=== PATIENT | female | born 1970 | race Caucasian/White ===

== ENCOUNTER 2017-04-23 07:11 | Emergency (ER) | payer BC ==
[2017-04-23 07:27] VITALS: BP 109/65
--- NOTE | 2017-04-23 11:12 | UC ---
Hola Che Angela, scribed for Sommer Carrizales DO on 04/23/17 at 0730 . General HPI - HPI Summary HPI Summary: This pt is a 46 y/o female presenting to [facility] c/o sinus congestion, rhinorrhea, sinus pressure, and cough for the last 10 days. Pt reports a productive cough which keeps her up at night. Pt notes her cough wears her out. She states she sleeps on the couch to help her sleep better. Pt additionally notes sinus headache, waking up today with right ear ache, and nausea this morning. She also states mild sore throat, which has alleviated a little since onset. Pt has taken Dayquil and Robitussin with mild relief, not completely alleviating her symptoms. She denies fever. Pt has used a netti pot throughout the day and states it made her ear hurt more. Pt additionally has impetigo on left lower lip for which she is taking mupirocin , and reports it is getting better. She states she has a PMHx of pre-diabetes. Pt denies any antibiotic allergies. Allergic to codeine (reaction is vomiting). - History of Current Complaint Stated Complaint: CONGESTED, EAR PAIN Hx Obtained From: Patient Hx Last Menstrual Period: 04/11/17 Onset/Duration: Lasting Days, Still Present Timing: Constant Current Severity: Moderate Pain Intensity: 6 Pain Location at: sinus pressure Aggravating: nothing Alleviating: Dayquil and Robitussin Associated Signs & Symptoms: Positive: Cough, Nausea, Other - POS: mild sore throat, rhinorrhea, right ear ache, sinus pressure, congestion, sinus headache.. Negative: Fever, Vomiting - Allergy/Home Medications Allergies/Adverse Reactions: Allergies Allergy/AdvReac Type Severity Reaction Status Date / Time codeine Allergy vomit Verified 04/23/17 07:25 Home Medications: Home Medications Folic Acid/Multivit-Min/Lutein [Multi-Vitamin Gummies] 1 mg PO DAILY WITH MEAL 04/23/17 [History Confirmed 04/23/17] PMH/Surg Hx/FS Hx/Imm Hx Other Endocrine History: pre-diabetes Other Cardiovascular History: DENIES: HTN - Surgical History Surgical History: None Surgery Procedure, Year, and Place: denies - Family History Known Family History: Positive: Diabetes - Social History Occupation: Employed Full-time - as a leasing specialist Alcohol Use: None Substance Use Type: None Smoking Status (MU): Never Smoked Tobacco Review of Systems Constitutional: Negative Skin: Other - impetigo on left lower lip. Eyes: Negative ENT: Sore Throat - mild, Ear Ache - right, Nasal Discharge, Sinus Congestion, Other - sinus pressure Respiratory: Cough Cardiovascular: Negative Gastrointestinal: Nausea Genitourinary: Negative Motor: Negative Neurovascular: Negative Musculoskeletal: Negative Neurological: Headache - sinus headache Psychological: Negative Is Patient Immunocompromised?: No All Other Systems Reviewed And Are Negative: Yes Physical Exam Triage Information Reviewed: Yes Appearance: Well-Appearing, No Pain Distress, Well-Nourished Vital Signs: Initial Vital Signs Temp 97.8 F 04/23/17 07:19 Pulse 77 04/23/17 07:19 Resp 16 04/23/17 07:19 BP 109/65 04/23/17 07:19 Pulse Ox 99 04/23/17 07:19 Vital Signs Reviewed: Yes Eyes: Positive: Conjunctiva Clear. Negative: Discharge ENT: Positive: Pharynx normal, Nasal congestion, TMs normal, Sinus tenderness. Negative: Tonsillar swelling, Tonsillar exudate, Trismus Neck exam: Normal Neck: Positive: Supple Respiratory: Positive: Lungs clear, No respiratory distress, No accessory muscle use, Expiration - prolonged expiration at bilateral bases Cardiovascular: Positive: RRR, No Murmur Musculoskeletal Exam: Normal Neurological: Positive: Alert, Muscle Tone Normal Psychological Exam: Normal Psychological: Positive: Age Appropriate Behavior Skin Exam: Other - warm, dry, normal color Skin: Positive: Other - impetigo on left lower lip Course/Dx - Course Course Of Treatment: Patient will be discharged with prescription for albuterol inhaler, Augmentin, Mucinex, and follow up from her PCP. The patient is agreeable with this plan. Medications reviewed. Allergies reviewed. - Differential Dx - Multi-Symptom Provider Diagnoses: sinusitis, bronchospam Discharge - Discharge Plan Condition: Stable Disposition: HOME Prescriptions: Albuterol HFA INHALER* [Ventolin HFA Inhaler*] 2 puff INH Q4H PRN #1 mdi PRN Reason: Sob/Wheezing Amoxicillin/Clavulanate TAB* [Augmentin TAB 875*] 875 mg PO BID #20 tab guaiFENesin ER TAB [Mucinex*] 600 mg PO BID PRN #1 box PRN Reason: Cough Patient Education Materials: Sinusitis (ED), Bronchospasm (ED) Referrals: Sommer Aquino MD [Primary Care Provider] - If Needed Additional Instructions: TRY USING THE NETTI POT IN THE MORNINGS DISCUSSED. YOU MUST ALWAYS USE CLEAN WATER. REMEMBER, POSTURE IS AN IMPORTANT FACTOR IN SINUS DRAINAGE. MOVE YOUR NECK, BREATHE. INHALED BRONCHODILATORS: You have received a prescription for an inhaled bronchodilator -- a medication which stimulates the airways in the lung to dilate. This improves the flow of air in asthma, bronchitis, and emphysema. These medicines have some similarity to adrenaline, and can cause similar side effects: shakiness, racing heart, and a sense of nervousness. These side effects decrease with time. Contact your doctor if these side effects are severe. Do not over-use the medicine. Too-frequent use of the inhaler may make it ineffective. Call your doctor if the inhaler is not controlling your symptoms at the prescribed doses. EXPECTORANT MEDICATION: An expectorant medicine has been prescribed. This type of drug makes mucous thinner, helping the sinuses, nose, and bronchial tubes to remain free of pus and mucous. Expectorants make a cough less severe and more comfortable, and help infected sinuses drain. In general, antihistamines defeat the purpose of the expectorant by making mucous thicker. They should be avoided unless specifically recommended by your physician. AUGMENTIN: Augmentin is a mixture of amoxicillin and clavulanate. Amoxicillin is a member of the penicillin family. It covers the germs likely to cause ear, bronchial, and urinary infections better than plain penicillin. The addition of clavulanate allows it to cover staph infections of the skin, as well as resistant cases of ear and sinus infections. Your physician has chosen Augmentin for you because of the special nature of your situation. Augmentin is best taken with meals. Nausea after taking the medication is rare, but can occur. Diarrhea can occur, particularly in small children. Vaginal yeast infections, and oral thrush in infants are also common. Contact your physician if these problems occur. Allergy to penicillins is common. If you have had an allergic reaction to any drug of the penicillin family, you should never take any other penicillin. Notify your doctor at once if you develop hives, shortness of breath, swelling, or faintness. ANYTIME YOU TAKE AN ANTIBIOTIC, IT IS IMPORTANT TO REPLENISH THE BODY'S SUPPLY OF "GOOD BACTERIA." YOU CAN GET GOOD BACTERIA FROM HIGH QUALITY CULTURED FOODS SUCH LOCAL YOGURT, SOUR KRAUT, CHEPE MIYA, NATURALLY FERMENTED PICKLES AND PROBIOTIC DRINKS. YOU CAN ALSO GET GOOD BACTERIA FROM A PROBIOTIC SUPPLEMENT. The documentation as recorded by the razaibHola gaston Angela accurately reflects the service I personally performed and the decisions made by me, Sommer Carrizales DO.
== END 2017-04-23 08:05 | disposition home or self-care (01) ==
LOC: UCEAST 07:11
DX: J32.9 Chronic sinusitis, unspecified (principal); J21.9 Acute bronchiolitis, unspecified; R73.03 Prediabetes; Z88.5 Allergy status to narcotic agent
CPT/HCPCS: 99212; G0463

== ENCOUNTER 2018-06-19 07:26 | Emergency (ER) | payer BC ==
--- OUTSIDE RECORDS SUMMARY | 2018-06-19 08:07 | XMS REPORT | Continuity of Care Document ---
:1970 External Reference #:[id number] Author Name Sommer Aquino M.D. Address [address] [place] [address] Care Team Providers Name Role Phone Sommer Aquino M.D. Primary Care Physician Unavailable Payers Date Identification Numbers Payment Provider Subscriber Effective: 2014 Policy Number: [id number] [facility] CARMEN Krystian Cox Group Name: BC/BS of [facility] [address] [address] PayID: [id number] BIJAN Gillespie [id number] Advance Directives Description No Information Available Problems Date Description Provider Status Onset: 02/03/2011 Depressive disorder Sommer Aquino M.D. Active Family History Date Family Member(s) Observation Comments Mother Glucose Intolerance METABOLIC SYNDROME Mother Hypercholesterolemia Mother Hypothyroid ÁLVARO'S Paternal Grandfather Cancer, Lung AGE 50 Paternal Grandmother Parkinson's Disease Maternal Grandfather COPD Maternal Grandfather Diabetes Maternal Grandfather Hypertension Maternal Grandfather [place] Maternal Grandmother CVA Maternal Grandmother Hypertension Maternal Grandmother Osteoporosis Maternal Grandmother Cardiomyopathy Maternal Grandmother COPD Social History Type Date Description Comments Sex Unknown Marital Status 2 Times from first Lives With 3 Children 3 boys and 1 stepdaughter Lives With Spouse Tobacco Use Start: Unknown Never Smoked Cigarettes Tobacco Use Start: Unknown Patient has never smoked Allergies, Adverse Reactions, Alerts Date Description Reaction Status Severity Comments 10/01/2002 Bee Stings Active 10/01/2002 Codeine Active Vomiting 12/07/2016 Shellfish-Derived Products Active Severe anaphylaxis Medications Medication Date Status Form Strength Qnty SIG Indications Ordering Provider Black Cohosh 05/17 Active Tablets 540 MG Qday Sommer P. Complex Harvey Aquino Black 05/17 Active Capsules 575mg Sommer Elderberry( P. ry-Flower) Harvey Aquino Dhea 05/17 Active Capsules 25mg PJair Aquino M.D. Vitamin D-400 05/17 Active Tablets 400Unit PJair Aquino M.D. Cetirizine HCL 05/17 Active Tablets 10mg 30tab 1 by mouth s every day PJair Aquino M.D. Iron 27 05/17 Active Tablets 240(27Fe) 1 PO qd mg PJair Aquino M.D. [place] 3 05/17 Active Capsules 1000mg 1 by mouth every day P. Harvey Aquino Magnesium 05/17 Active Tablets 64-112mg 30tab 1 per day Sommer Chloride-Calci s P. um Harvey Aquino Viactiv 05/17 Active Chewtabs 500-500-4 1 by mouth 0mg-Unt-m every day P. cg Harvey Aquino Bupropion 05/17 Active Tablets ER 300mg 90tab 1 PO qam For Sommer Hydrochloride 24HR s Depression P. ER (XL) Harvey Aquino Magnesium 10 Active Tablets 400mg oxide- 1 by mouth every P. day Harvey Aquino Vitamin B-12 12/07 Active Tablets 1000mcg sublingual- 1 by mouth P. every day- Blegen, sublingual Harvey Fish Oil 12/07 Active Capsules 1000mg 1 by mouth every day PJair Aquino M.D. Epinephrine 12/04 Active Solution 0.3mg/0.3 2unit inject at Auto-Inject ML s onset of P. allergic Ble, Harvey gates then go to the er-- Wait To Fill Until PT Calls Bupropion 04/24 Hx Tablets ER 150mg 60tab 1 by mouth Sommer Hydrochloride 12HR s every morning P. ER (SR) - for mood- june Blegen, 05/17 increase M.D. after 3-4 days to 1 po bid as directed Tamiflu 04/05 Hx Capsules 75mg 10cap 1 by mouth Angelo s twice per day Jacinta - for 5 days , 05/17 for flu Bupropion HCL 01/10 Hx Tablets ER 150mg 60tab 1 by mouth Sommer ER (SR) 12HR s every morning P. - for mood- june Blegen, 04/24 increase M.D. after 3-4 days to 1 po bid as directed Doxycycline 01/03 Hx Capsules 100mg 2caps 2 PO X 1 Dose Sommer Hyclate as Directed P. - For Tick Bite Blegen, 01/10 M.D. Vitamin D3 12/07 Hx Capsules 5000Unit 1 by mouth Sommer every day P. - Blegen, 05/[address] [facility] Wort 12/07 Hx Capsules 150mg every other day, P. - occasionally Blegen, 05/16 M.D. Contrave 12/07 Hx Tablets ER 8-90mg 60tab 1 PO Qday X 1 E66.9 12HR s Week, 1 PO P. - bid X 1 Week, Blegen, 01/10 2 PO qam And M.D. 1 PO qpm X 1 Week Then 2 PO bid as Directed Bupropion HCL 01/06 Hx Tablets 100mg 60tab 1 tab by Lenora s mouth twice a Lois, - day COPY COORDINATOR-C 12/05 Celexa 12/04 Hx Tablets 10mg 30tab 1 by mouth F32.9 Lenora s every day Lois, - COPY COORDINATOR-C 01/06 Prednisone 10/09 Hx Tablets 10mg 30tab 4 tabs by Jitendra s mouth x 3 Julia - days then 3 III, 12/04 tabs x 3 COPY COORDINATOR-C days, 2 tabs x 3 days, 1 tab x 3 days Prednisone 09/29 Hx Tablets 20mg 10tab 2 tablets by L23.7 Jitendra s mouth daily Julia - for five days III, 12/04 COPY COORDINATOR-C Bupropion HCL 02/20 Hx Tablets ER 150mg 60tab 1-2 po qday Sommer ER (XL) 24HR s in the P. - morning as Blegen, 12/04 directed M.D. Vitamin D3 04/19 Hx Capsules 5000Unit 1 by mouth Sommer every day for P. - vitamin d Blegen, 12/04 deficiency M.D. Fluconazole 08/21 Hx Tablets 150mg 2tabs 1 tablet by Sommer mouth now for P. - yeast Blegen, 08/21 infection- M.D. may repeat in 1 week if persistent sx Sertraline HCL 08/21 Hx Tablets 50mg 30tab 1/2 po qd x 1 Sommer s week then 1 P. - po qd Blegen, 04/15 M.. Metronidazole 08/21 Hx Gel 0.75% qs apply every night at P. - bedtime for 5 Blegen, 12/04 nights per M.D. vagina as directed Doxycycline 07/10 Hx Capsules 100mg 56cap 1 by mouth Sommer Hyclate s twice a day x P. - 4 weeks for Blegen, 04/15 lyme- take M.D. with full glass of water Fluconazole 11/29 Hx Tablets 150mg 2tabs 1 tablet 1 by Lenora mouth now Lois, - COPY COORDINATOR-C 07/08 Metronidazole 11/27 Hx Tablets 500mg 20tab take 1 tablet V25.42 Lenora s by mouth Lois, - twice a day x COPY COORDINATOR-C 07/08 10 Mirena 10/23 Hx IUD 20mcg/24H inserted Lenora R 09/2013 remove Lois, - 09/2018 COPY COORDINATOR-C 03/25 Metformin HCL 04/02 Hx Tablets ER 500mg 30tab take one 790.21 Sommer CAZARES 24HR s tablet by P. - mouth every Blegen, 08/24 day with M[address]D. dinner [facility] Nar[facility] Wort 04/02 Hx Capsules 1 PO qd Sommer Gamez P. - Blegen, 07/08 M.D. Vitamin B 04/02 Hx Tablets qd- taking Sommer Hein occasionally P. - Blegen, 12/04 M.D. Slow Fe 07/11 Hx Tablets ER 160(50Fe) 1 po qd mg P. - Blegen, 12/04.D. Epipen 2-Cole 04/08 Hx Solution 0.3mg/0.3 1unit one injection Auto-Inject ML s as directed P. - prn severe Blegen, 12/04 allergic M.D. reaction and call 911 Vitamin D3 04/05 Hx Capsules 1000Unit 1 PO bid P. - Blegen, 04/19.D. Azithromycin 01/27 Hx Tablets 250mg 6tabs take 2 461.8 tablets today Vinh Drummond then 1 tablet COPY COORDINATOR-C 04/04 daily for next 4 days Ceftin 04/26 Hx Tablets 500mg 20tab one bid x 10 s days P. - Blegen, 10/05.D. Cetirizine HCL 01/18 Hx Tablets 10mg one po qhs for allergies P. - Blegen, 12/04.D. Nasonex 01/18 Hx Suspension 50mcg/Act 1unit 2 sprays each s nostril qd as P. - directed Blegen, 04/04.D. Asmanex 30 01/18 Hx Aerosol 220mcg/In 1unit 1 puff qd X Sommer Metered Doses /2010 h s 2-4 weeks- P. - rinse mouth Blegen, 04/05 after .D. Albuterol HFA 01/18 Hx 90mcg/Inh 1unit 2 puffs q 4 s hours prn Vinh Drummond wheezing COPY COORDINATOR-C 04/02 Zithromax 01/18 Hx Tablets 250mg 6tabs two po qd Sommer today and P. - then one po Blegen, 10/05 qd for 4 days M.D. /2011 Prednisone 08/20 Hx Tablets 20mg QS 3 po qd for 2 995.3 days, then 1 Vinh Bell po qd for 2 M.D., 01/18 days, then R.D. /03/01 po qd for 2 days Metformin HCL 03/30 Hx Tablets 500mg 30tab 1 PO Qday s With Meal P. - Blegen, 01/18 M.D. Patanol 03/30 Hx Solution 0.1% 5ml one to two gtts ou bid P. - prn allergic Blegen, 01/18 M.D. conjunctiviti s Bleph-10 03/02 Hx Solution 10% 1bott 2 drops to 682.0 le affected eye P. - every 3 hours Blegen, 03/30 initially M.D. then 2 times a day for 7 days Keflex 03/02 Hx Capsules 500mg 14cap one po bid x 682.0 s 7 days Dread, - FIELD GEOLOGIST 03/30 Azithromycin 12/23 Hx Tablets 250mg 6tabs take 2 tabs 466.0 day 1, take 1 Dread - day 2-5 FIELD GEOLOGIST 03/30 Proventil HFA 12/23 Hx Aerosol 108(90Bas 2unit 2 puffs q4-6 466.0 e) mcg/ac s hours prn Dread - cough, FIELD GEOLOGIST 01/18 wheeze, shortness of breath Aerobic 05/20 Hx as directed Sommer [facility] [employer] - hypercholeste Blegen, 09/10 rolemia/ M.D. obesity Zithromax 02/24 Hx Tablets 500mg 3Tabs 1 po daily 461.8 [place] Tri-Cole for three R. Storm, - days, june COPY COORDINATOR-C 09/10 repeat in days if not effective Metrogel-Vagin 10/24 Hx Gel 0.75% 70gm apply qhs pv Sommer x 5days P. - Blegen, 03/30 M.D. Levaquin 05/29 Hx Tablets 500mg 7tabs one qd x 7 Days P. - Blegen, 10/24 M.D. Augmentin 05/27 Hx Tablets 875mg 14tab 1 po bid Connie s Vinh Bell M.D., 05/29 R.D. Keflex 05/11 Hx Capsules 500mg 20cap 1 bid x 10 034.0 Brian s days Yelena - M.DJair 08/09 Penicillin V 04/27 Hx Tablets 500mg 30tab 1 po tid with 034.0 Shawnti Potassium s food for Frank Churchill, - strep throat COPY COORDINATOR-C 10/24 Neurontin 07/19 Hx Capsules 100mg 20cap 1-3 po qhs as s directed P. - Blegen, 10/24 M.D. Valtrex 07/18 Hx Tablets 1gm 21tab 1 PO Q 8 HRS s X 7 Days For P. - Shingles Blegen, 10/24 M.D. Epipen 04/11 Hx Device 1:1000 2unit one injection s as directed P. - prn severe Blegen, 04/08 allergic M.D. reaction and call 911 Zoloft 04/11 Hx Tablets 50mg 45tab 1 And 1/ PO 309.0 s qd P. - Blegen, 04/05 M.D. Zoloft 01/23 Hx Tablets 25mg 30tab 1 PO Daily 309.0 Shawnti /2006 s For Frank Churchill, - adjustment COPY COORDINATOR-C 04/11 reaction /2007 Mupirocin 12/03 Hx Ointment 20mg 15gm Apply qd To Ramesh Skin Sores Aroldo Justice M.D. 10/24 Amoxicillin 12/21 Hx Caps 500mg 21cap 1 tid x 7 Lenora s days Javi - M.DJair 02/06 Anusol HC 10/02 Hx 30uni 1 pr bid For Sommer Suppository /2002 ts 2 Weeks prn P. - Blegen, 10/24 M.D. Mycolog II 06/13 Hx Cream 30gm apply bid until rash Amparo, - gone, up to 3 FIELD GEOLOGIST Denavir 06/13 Hx Cream 1% 2gm apply q2h while awake Amparo, - x4d FIELD GEOLOGIST 02/06 Keflex 12/01 Hx Tablets 500mg 20tab one bid x 10 s days Amparo, - FIELD GEOLOGIST 02/06 Bactroban 12/01 Hx Ointment 15Gra apply to Sommer Ointment ms wound/lesion P. - three times Blegen, 01/29 per day until M.D. healed Amoxicillin 11/23 Hx 500 14uni one po bid ts for 5 -7 days P. - Blegen, 02/06 M.D. Bactroban 11/23 Hx Chewtabs 15Gra apply to Sommer Cream ms wound/lesion P. - three times Blegen, 02/06 perday until M.D. healed Mvi's 09/28 Hx Tablets 90tab one qd Sommer With Iron s P. - Blegen, 03/04 M.D. Amoxicillin 06/29 Hx Chewtabs 250mg 30uni Chew And ts Swallow One P. - Tablet Three Blegen, 06/29 Times Per M.D. Day Until Prescription Is Finished Glucophage XR Hx Tablets ER 500mg 180ta 1 by mouth 24HR bs every day to P. - twice a day Blegen, 05/16 for impaired M.D. fasting glucose Medications Administered in Office Medication Date Status Form Strength Qnty SIG Indications Ordering Provider Medroxyprogesteron 08/22 Administered Injection Sommer e Acetate 1 MG /2013 P. (Depo-Provera) Blegen, Injection M.D. Immunizations CPT Code Status Date Vaccine Lot # [id number] Given 12/15/2016 Influenza Virus Vaccine, Quadrivalent, 3 Yr > Quad, Preserv Free 74726 Given 12/07/2016 Tdap (Adacel) [id number] 71719 Given 12/10/2015 Influenza Virus Vaccine, Quadrivalent, 3 Yr > Quad, Preserv Free 31859 Given 12/12/2014 Influenza Virus Vaccine, Quadrivalent, 3 Yr > Quad, Preserv Free 06088 Given 04/11/2007 Tdap (Adacel) [id number] 47879 Given 07/03/1998 Hep B Vaccine Adult, 3 Dose age >20 yrs 26142 Given 12/06/1996 Hep B Vaccine Adult, 3 Dose age >20 yrs 29344 Given 12/06/1996 DT (Adult) Vital Signs Date Vital Result Comment 05/17/2018 9:27am Weight 184.00 lb Weight 83.462 kg BP Systolic 102 mmHg BP Diastolic 60 mmHg Heart Rate 86 /min Body Temperature 99.0 F Respiratory Rate 16 /min Height 62 inches 5'2" BMI (Body Mass Index) 33.7 kg/m2 Last Menstrual Period 5101677 O2 % BldC Oximetry 96 % 12/07/2016 12:02pm Weight 185.00 lb Weight 83.916 kg BP Systolic 110 mmHg BP Diastolic 74 mmHg Heart Rate 68 /min Body Temperature 98.9 F Respiratory Rate 14 /min Height 62 inches 5'2" BMI (Body Mass Index) 33.8 kg/m2 01/07/2016 4:03pm Weight 187.00 lb Weight 84.823 kg BP Systolic 104 mmHg BP Diastolic 64 mmHg Heart Rate 60 /min Body Temperature 98.7 F Respiratory Rate 14 /min 12/05/2015 3:29pm Weight 181.00 lb Weight 82.102 kg BP Systolic 105 mmHg BP Diastolic 85 mmHg Heart Rate 66 /min O2 % BldC Oximetry 98 % 09/30/2015 9:02am Weight 178.00 lb Weight 80.741 kg BP Systolic 90 mmHg BP Diastolic 60 mmHg Heart Rate 67 /min Body Temperature 97.3 F Respiratory Rate 16 /min 05/27/2015 4:12pm Weight 175.00 lb Weight 79.380 kg BP Systolic 102 mmHg BP Diastolic 64 mmHg Heart Rate 90 /min 04/15/2015 3:31pm Weight 178.00 lb Weight 80.741 kg BP Systolic 104 mmHg BP Diastolic 56 mmHg Heart Rate 100 /min 07/08/2014 11:33am Weight 169.00 lb Weight 76.658 kg BP Systolic 90 mmHg BP Diastolic 60 mmHg Heart Rate 80 /min 03/19/2014 4:31pm Weight 174.00 lb Weight 78.926 kg BP Systolic 106 mmHg BP Diastolic 62 mmHg Heart Rate 66 /min Body Temperature 98.5 F 2013 3:37pm Weight 156.00 lb Weight 70.762 kg BP Systolic 104 mmHg BP Diastolic 68 mmHg Heart Rate 84 /min Body Temperature 98.6 F 10/23/2013 4:09pm Weight 156.00 lb Weight 70.762 kg BP Systolic 100 mmHg BP Diastolic 75 mmHg Heart Rate 75 /min 08/22/2013 3:21pm Weight 150.00 lb Weight 68.040 kg BP Systolic 104 mmHg BP Diastolic 66 mmHg Heart Rate 84 /min Last Menstrual Period [id number] 04/02/2013 10:22am Weight 163.00 lb Weight 73.937 kg BP Systolic 120 mmHg BP Diastolic 78 mmHg Heart Rate 80 /min Height 62 inches 5'2" BMI (Body Mass Index) 29.8 kg/m2 Last Menstrual Period [id number] 07/11/2012 4:02pm Weight 176.00 lb Weight 79.834 kg BP Systolic 100 mmHg BP Diastolic 64 mmHg Heart Rate 74 /min 04/05/2012 9:35am Weight 194.00 lb Weight 87.998 kg BP Systolic 104 mmHg BP Diastolic 64 mmHg Heart Rate 76 /min Height 62.5 inches 5'2.50" BMI (Body Mass Index) 34.9 kg/m2 Last Menstrual Period [id number] 01/28/2012 9:57am Weight 205.00 lb Weight 92.988 kg BP Systolic 108 mmHg BP Diastolic 68 mmHg Heart Rate 84 /min Body Temperature 98.2 F 04/05/2011 12:13pm Weight 191.00 lb Weight 86.638 kg BP Systolic 90 mmHg BP Diastolic 60 mmHg Heart Rate 88 /min Body Temperature 98.9 F 01/18/2011 12:18pm Weight 183.00 lb Weight 83.009 kg BP Systolic 92 mmHg BP Diastolic 56 mmHg Heart Rate 89 /min Body Temperature 99.8 F Last Menstrual Period 0 O2 % BldC Oximetry 98 % 08/20/2010 12:29pm Weight 169.00 lb Weight 76.658 kg BP Systolic 92 mmHg BP Diastolic 60 mmHg Heart Rate 89 /min Body Temperature 98.8 F O2 % BldC Oximetry 98 % 03/30/2010 9:31am Weight 183.00 lb Weight 83.009 kg BP Systolic 110 mmHg BP Diastolic 60 mmHg Heart Rate 84 /min Last Menstrual Period [id number] 03/02/2010 9:25am Weight 187.00 lb Weight 84.823 kg BP Systolic 124 mmHg BP Diastolic 70 mmHg Heart Rate 80 /min Body Temperature 98.7 F Right Visual Acuity Distance 20/20 Left Visual Acuity Distance 20/20 Both Visual Acuity Distance 20/20 12/23/2009 2:27pm Weight 197.00 lb Weight 89.359 kg BP Systolic 110 mmHg BP Diastolic 66 mmHg Heart Rate 100 /min Body Temperature 98.4 F O2 % BldC Oximetry 98 % AT Room Air 10/03/2009 8:48am Weight 198.00 lb Weight 89.813 kg BP Systolic 98 mmHg BP Diastolic 66 mmHg Heart Rate 64 /min Body Temperature 98.8 F 02/24/2009 8:31am Weight 197.00 lb Weight 89.359 kg BP Systolic 106 mmHg BP Diastolic 68 mmHg Heart Rate 76 /min Body Temperature 97.1 F 10/24/2008 9:31am Weight 200.00 lb Weight 90.720 kg BP Systolic 105 mmHg BP Diastolic 60 mmHg Heart Rate 80 /min Height 62.5 inches 5'2.50" BMI (Body Mass Index) 36.0 kg/m2 05/27/2008 10:47am Weight 206.00 lb Weight 93.442 kg BP Systolic 102 mmHg BP Diastolic 64 mmHg Heart Rate 72 /min Body Temperature 98.8 F 05/11/2008 11:10am Weight 203.00 lb Weight 92.081 kg BP Systolic 102 mmHg BP Diastolic 68 mmHg Body Temperature 98.4 F 04/27/2008 10:29am Weight 207.00 lb with shoes Weight 93.895 kg BP Systolic 104 mmHg BP Diastolic 60 mmHg Heart Rate 96 /min Body Temperature 102.6 F 03/04/2008 11:48am Weight 201.00 lb Weight 91.174 kg BP Systolic 112 mmHg BP Diastolic 58 mmHg Heart Rate 72 /min Body Temperature 96.7 F 07/20/2007 12:44pm Weight 190.00 lb Weight 86.184 kg BP Systolic 98 mmHg BP Diastolic 60 mmHg Heart Rate 78 /min Height 62 inches 5'2" BMI (Body Mass Index) 34.7 kg/m2 06/06/2007 4:02pm Weight 200.00 lb Weight 90.720 kg BP Systolic 98 mmHg BP Diastolic 64 mmHg Heart Rate 84 /min Height 62 inches 5'2" BMI (Body Mass Index) 36.6 kg/m2 04/11/2007 2:38pm Weight 199.00 lb Weight 90.266 kg BP Systolic 100 mmHg BP Diastolic 50 mmHg Heart Rate 64 /min Height 62 inches 5'2" BMI (Body Mass Index) 36.4 kg/m2 01/23/2007 3:36pm Weight 196.00 lb Weight 88.906 kg BP Systolic 94 mmHg BP Diastolic 64 mmHg Heart Rate 84 /min Body Temperature 97.2 F 04/10/2003 9:10am Weight 184.00 lb Weight 83.462 kg BP Systolic 110 mmHg BP Diastolic 60 mmHg Body Temperature 97.0 F 12/21/2002 3:47pm Weight 189.00 lb Weight 85.730 kg BP Systolic 96 mmHg BP Diastolic 68 mmHg Body Temperature 98.2 F 10/01/2002 9:02am Weight 181.00 lb Weight 82.102 kg BP Systolic 110 mmHg BP Diastolic 60 mmHg Heart Rate 76 /min Respiratory Rate 18 /min Height 62 inches BMI (Body Mass Index) 33.1 kg/m2 08/28/2002 3:50pm BP Systolic 92 mmHg BP Diastolic 68 mmHg Body Temperature 98.2 F 06/13/2002 9:29am BP Systolic 128 mmHg BP Diastolic 58 mmHg Body Temperature 97.1 F 12/05/2001 11:45am Weight 175.00 lb Weight 79.400 kg BP Systolic 110 mmHg BP Diastolic 70 mmHg Heart Rate 80 /min Body Temperature 98.9 F Respiratory Rate 18 /min 12/01/2001 12:18pm Weight 175.00 lb Weight 79.400 kg BP Systolic 110 mmHg BP Diastolic 60 mmHg Body Temperature 97.6 F 11/23/2001 4:01pm Weight 175.00 lb Weight 79.400 kg BP Systolic 110 mmHg BP Diastolic 64 mmHg 09/19/2001 10:00am BP Systolic 102 mmHg BP Diastolic 56 mmHg Heart Rate 72 /min 06/29/2001 4:58pm Weight 164.00 lb BP Systolic 100 mmHg BP Diastolic 60 mmHg Results Test Date Facility Test Result H/L Range Note Comp Metabolic 05/17/2018 [facility] Sodium 139 mmol/ L N 135-145 Panel [phone] Potassium 4.2 mmol/L N 3.5-5.0 Chloride 104 mmol/L N 101-111 Co2 Carbon Dioxide 29 mmol/L N 22-32 Anion Gap 6 mmol/L N 2-11 Glucose 85 mg/dL N 70-100 Blood Urea Nitrogen 12 mg/dL N 6-24 Creatinine 0.74 mg/dL N 0.51-0.95 BUN/Creatinine Ratio 16.2 N 8-20 Calcium 9.3 mg/dL N 8.6-10.3 Total Protein 6.7 g/dL N 6.4-8.9 Albumin 4.3 g/dL N 3.2-5.2 Globulin 2.4 g/dL N 2-4 Albumin/Globulin Ratio 1.8 N 1-3 Total Bilirubin 0.70 mg/dL N 0.2-1.0 Alkaline Phosphatase 52 U/L N 34-104 Alt 7 U/L N 7-52 Ast 18 U/L N 13-39 Egfr Non- 84.5 >60 Egfr 102.2 >60 1 Laboratory test 05/17/2018 [facility] Hemoglobin A1c 5.0 % N 4.0-5.6 2 finding [phone] (Glyco HGB) Vitamin D Total 25(Oh) 42.5 ng/mL N 20-50 3 CBC Auto Diff 05/17/2018 [facility] White Blood 8.0 10^3/uL N 3.5-10.8 [phone] Count Red Blood Count 4.40 10^6/uL N 3.70-4.87 Hemoglobin 13.7 g/dL N 12.0-16.0 Hematocrit 41 % N 33-41 Mean Corpuscular Volume 93 fL N 80-97 Mean Corpuscular Hemoglobin 31 pg N 27-31 Mean Corpuscular HGB Conc 34 g/dL N 31-36 Red Cell Distribution Width 12 % N 10.5-15 Platelet Count 330 10^3/uL N 150-450 Mean Platelet Volume 8.6 fL N 7.4-10.4 Abs Neutrophils 5.2 10^3/uL N 1.5-7.7 Abs Lymphocytes 2.0 10^3/uL N 1.0-4.8 Abs Monocytes 0.5 10^3/uL N 0-0.8 Abs Eosinophils 0.2 10^3/uL N 0-0.6 Abs Basophils 0.1 10^3/uL N 0-0.2 Abs Nucleated RBC 0 10^3/uL Granulocyte % 64.9 % Lymphocyte % 25.6 % Monocyte % 6.7 % Eosinophil % 2.1 % Basophil % 0.7 % Nucleated Red Blood Cells % 0 Laboratory test 05/17/2018 [facility] TSH (Thyroid 1.26 mcIU/mL N 0.34-5.60 4 finding [phone] Stim Horm) Free T4 (Free Thyroxine) 0.95 ng/dL N 0.61-1.12 5 Iron & Iron Binding 05/17/2018 [facility] Iron 64 g /dL N 50-212 Capacity [phone] Unsaturated Iron Binding < 335 g/dL Total Iron Binding Capacity 350 g/dL N 250-450 Transferrin 250 mg/dL N 203-362 % Iron Saturation 18 % N 15-55 Laboratory test 05/17/2018 [facility] Vitamin B12 > 1450 High 180-914 6 finding [phone] pg/mL Lipid Profile 05/17/2018 [facility] Triglycerides 77 mg/dL 7 (Trig/Chol/HDL) [phone] Cholesterol 169 mg/dL 8 HDL Cholesterol 54.8 mg/dL 9 LDL Cholesterol 99 mg/dL 10 Laboratory test 12/07/2016 [facility] Vitamin D 29.7 ng/mL N 20-50 11 finding [phone] Total 25(Oh) CBC Auto Diff 12/07/2016 [facility] White Blood 6.8 10^3/uL N 3.5-10.8 [phone] Count Red Blood Count 4.16 10^6/uL N 4.0-5.4 Hemoglobin 12.4 g/dL N 12.0-16.0 Hematocrit 38 % N 35-47 Mean Corpuscular Volume 91 fL N 80-97 Mean Corpuscular Hemoglobin 30 pg N 27-31 Mean Corpuscular HGB Conc 33 g/dL N 31-36 Red Cell Distribution Width 13 % N 10.5-15 Platelet Count 284 10^3/uL N 150-450 Mean Platelet Volume 9 um3 N 7.4-10.4 Abs Neutrophils 3.7 10^3/uL N 1.5-7.7 Abs Lymphocytes 2.5 10^3/uL N 1.0-4.8 Abs Monocytes 0.5 10^3/uL N 0-0.8 Abs Eosinophils 0.2 10^3/uL N 0-0.6 Abs Basophils 0 10^3/uL N 0-0.2 Abs Nucleated RBC 0.01 10^3/uL N Granulocyte % 54.5 % N 38-83 Lymphocyte % 35.9 % N 25-47 Monocyte % 6.8 % N 1-9 Eosinophil % 2.2 % N 0-6 Basophil % 0.6 % N 0-2 Nucleated Red Blood Cells % 0.1 N Comp Metabolic Panel 12/07/2016 [facility] Sodium 136 mmol/L N 133-145 [phone] Potassium 4.3 mmol/L N 3.5-5.0 Chloride 103 mmol/L N 101-111 Co2 Carbon Dioxide 29 mmol/L N 22-32 Anion Gap 4 mmol/L N 2-11 Blood Urea Nitrogen 11 mg/dL N 6-24 Creatinine 0.73 mg/dL N 0.51-0.95 BUN/Creatinine Ratio 15.1 N 8-20 Calcium 8.5 mg/dL Low 8.6-10.3 Total Protein 6.5 g/dL N 6.4-8.9 Albumin 4.0 g/dL N 3.2-5.2 Globulin 2.5 g/dL N 2-4 Albumin/Globulin Ratio 1.6 N 1-3 Total Bilirubin 0.60 mg/dL N 0.2-1.0 Alkaline Phosphatase 55 U/L N 34-104 Alt 7 U/L N 7-52 Ast 18 U/L N 13-39 Egfr Non- 86.2 N >60 Egfr 110.9 N >60 12 Laboratory test 12/07/2016 [facility] Glucose 78 mg/ dL N 70-100 finding [phone] Laboratory test 12/07/2016 [facility] Cytology SEE RESULT 13 finding [phone] BELOW HPV Rna Ww/Reflex Genotype Negative N Negative 14 Laboratory 04/16/2015 [facility] TSH (Thyroid 2.07 N 0.34-5.60 15, 16 test finding [phone] Stimulating ?IU/mL Horm) Free T4 0.80 ng/dL N 0.61-1.12 17 Free T3 3.20 pg/mL N 2.5-3.9 18 Thyroperoxidase AB 0.48 IU/mL N <9 19 Comp Metabolic Panel 04/16/2015 [facility] Sodium 136 mmol/L N 133-145 [phone] Potassium 4.2 mmol/L N 3.5-5.0 Chloride 102 mmol/L N 101-111 Co2 Carbon Dioxide 29 mmol/L N 22-32 Anion Gap 5 mmol/L N 2-11 Glucose 83 mg/dL N 70-100 Blood Urea Nitrogen 13 mg/dL N 6-24 Creatinine 0.73 mg/dL N 0.51-0.95 BUN/Creatinine Ratio 17.8 N 8-20 Calcium 8.9 mg/dL N 8.6-10.3 Total Protein 6.2 g/dL Low 6.4-8.9 Albumin 4.0 g/dL N 3.2-5.2 Globulin 2.2 g/dL N 2-4 Albumin/Globulin Ratio 1.8 N 1-3 Total Bilirubin 1.20 mg/dL High 0.2-1.0 Alkaline Phosphatase 46 U/L N 34-104 Alt 7 U/L N 7-52 Ast 18 U/L N 13-39 Egfr Non- 87.0 N >60 Egfr 111.9 N >60 20 Laboratory test 04/16/2015 [facility] Free Cortisol 0.39 N 21 finding [phone] Serum Vitamin D Total 25(Oh) 19.7 ng/mL Low 30-50 22 Hemoglobin A1c 5.3 % N Less than 6.0 23 Lyme Western 07/08/2014 [facility] Lyme Disease Negative N Negative Blot [phone] IgG Ab WB Lyme Disease IgG Bands Present p41, kDa N Lyme Disease IgM Ab WB Negative N Negative Lyme Disease IgM Bands Present No bands detecte <SEE NOTE> kDa N 24 Lyme Disease Interpretation See Comment N 25 Laboratory test 07/08/2014 [facility] Vitamin D 25.2 ng/mL Low 30-50 finding [phone] Total 25(Oh) TSH (Thyroid Stim Horm) 1.35 ?IU/mL N 0.34-5.60 Free T4 (Free Thyroxine) 0.80 ng/mL N 0.61-1.12 T3 Free 3.00 pg/mL N 2.5-3.9 Vitamin B12 610 pg/mL N 180-914 26 CBC Auto Diff 07/08/2014 [facility] White Blood 7.0 10^3/uL N 4.8-10.8 [phone] Count Red Blood Count 4.22 10^6/uL N 4.0-5.4 Hemoglobin 13.7 g/dL N 12.0-16.0 Hematocrit 41 % N 35-47 Mean Corpuscular Volume 96 fL N 80-97 Mean Corpuscular Hemoglobin 32 pg High 27-31 Mean Corpuscular HGB Conc 34 g/dL N 31-36 Red Cell Distribution Width 13 % N 10.5-15 Platelet Count 306 10^3/uL N 150-450 Mean Platelet Volume 9 um3 N 7.4-10.4 Abs Neutrophils 4.4 10^3/uL N 1.5-7.7 Abs Lymphocytes 2.0 10^3/uL N 1.0-4.8 Abs Monocytes 0.4 10^3/uL N 0-0.8 Abs Eosinophils 0.1 10^3/uL N 0-0.6 Abs Basophils 0 10^3/uL N 0-0.2 Abs Nucleated RBC 0 10^3/uL N Granulocyte % 62.8 % N 38-83 Lymphocyte % 29.1 % N 25-47 Monocyte % 5.8 % N 1-9 Eosinophil % 1.9 % N 0-6 Basophil % 0.4 % N 0-2 Nucleated Red Blood Cells % 0.1 N Comp Metabolic Panel 07/08/2014 [facility] Sodium 137 mmol/L N 133-145 [phone] Potassium 3.9 mmol/L N 3.5-5.0 Chloride 103 mmol/L N 101-111 Co2 Carbon Dioxide 30 mmol/L N 22-32 Anion Gap 4 mmol/L N 2-11 Glucose 99 mg/dL N 70-100 Blood Urea Nitrogen 11 mg/dL N 6-24 Creatinine 0.73 mg/dL N 0.51-0.95 BUN/Creatinine Ratio 15.1 N 8-20 Calcium 9.0 mg/dL N 8.6-10.3 Total Protein 6.6 g/dL N 6.4-8.9 Albumin 4.2 g/dL N 3.2-5.2 Globulin 2.4 g/dL N 2-4 Albumin/Globulin Ratio 1.8 N 1-3 Total Bilirubin 1.20 mg/dL High 0.2-1.0 Alkaline Phosphatase 43 U/L N 34-104 Alt 8 U/L N 7-52 Ast 19 U/L N 13-39 Egfr Non- 87.4 N >60 Egfr 112.4 N >60 27 Laboratory test 07/08/2014 [facility] Erythrocyte Sed 13 mm/Hr N 0-14 finding [phone] Rate Hemoglobin A1c (Glyco HGB) 5.2 % N Less than 6.0 28 Laboratory test 2013 [facility] Affirm Vaginal (SEE NOTE) 29 finding [phone] Dna Probe Genital Culture (SEE NOTE) 30 Laboratory test 10/23/2013 [facility] Hemoglobin 12.9 finding (607)- - HCG () 10/23/2013 [facility] NEG Urine Stat (607)- - Test, Urine Laboratory test 08/22/2013 [facility] HCG DIP Test neg Neg finding (607)- - HIV 1/2 AB 04/02/2013 [facility] HIV 1 2 Nonreactive Nonreactive 31 Evaluation [phone] Antibody Syphilis Screen 04/02/2013 [facility] Syphilis IgG Nonreactive Nonreactive 32 [phone] RPR TNP Nonreactive RPR Titer TNP Pediatric/Maternal NO Laboratory test 04/02/2013 [facility] Cytology RUN DATE: 33 finding [phone] SEE NOTE> HPV High Risk 04/02/2013 [facility] Human Papillomavirus ECTO/ENDO [phone] Source HPV High Risk Type 16, PCR Negative Negative HPV High Risk Type 18, PCR Negative Negative HPV Other Risk types Negative Negative 34 GC/Chlamydia 04/02/2013 [facility] GC/Chlamydia Rna ( SEE NOTE) 35 Amplified Rna [phone] Urine DIP 04/02/2013 [facility] Leukocytes NEG Neg (607)- - Urine Nitrites NEG Neg Urine pH 5 5-6 Total Protein, Urine NEG Neg Urine Glucose NORM Norm Urine Ketones NEG Neg Urobilinogen NORM Norm Urine Bilirubin NEG Neg Urine Blood NEG Neg Specific [place] 1.015 1.01-1.02 Laboratory test 03/27/2013 [facility] TSH (Thyroid 1.61 0.34-5.60 finding [phone] Stimulating miu/mL Horm) Free T4 0.97 ng/mL 0.61-1.24 Free T3 3.54 pg/mL 2.39-6.79 Hemoglobin A1c 5.2 % Less than 6.0 36 Vitamin D, 25 03/27/2013 [facility] 25-Hydroxy Vitamin <4.0 ng/mL Hydroxy [phone] D2 25-Hydroxy Vitamin D3 29 ng/mL 25-Hydroxy Vitamin D Total 29 ng/mL 37 Comp Metabolic Panel 03/27/2013 [facility] Sodium 135 mmol/L 133-145 [phone] Potassium 4.1 mmol/L 3.5-5.0 Chloride 100 mmol/L Low 101-111 Co2 Carbon Dioxide 29.0 mmol/L 22-32 Anion Gap 6.0 mmol/L 2-11 Glucose 86 mg/dL 70-100 Blood Urea Nitrogen 10 mg/dL 6-24 Creatinine 0.80 mg/dL 0.50-1.40 BUN/Creatinine Ratio 12.5 8-20 Calcium 9.3 mg/dL 8.1-9.9 Total Protein 6.6 g/dL 6.2-8.1 Albumin 4.0 g/dL 3.6-5.4 Globulin 2.6 g/dL 2-4 Albumin/Globulin Ratio 1.5 1-3 Total Bilirubin 1.8 mg/dL High 0.4-1.5 Alkaline Phosphatase 46 U/L 30-110 Alt 10 U/L Low 14-54 Ast 25 U/L 12-42 Egfr Non- 79.0 >60 Egfr 101.7 >60 38 Laboratory test 04/05/2012 [facility] Cytology RUN DATE: 39 finding [phone] 04/06/ <SEE NOTE> Urine DIP 04/05/2012 [facility] House [facility] Leukocytes NEG Neg (607)- - Urine Nitrites NEG Neg Urine pH 5 5-6 Total Protein, Urine NEG Neg Urine Glucose NORM Norm Urine Ketones NEG Neg Urobilinogen NORM Norm Urine Bilirubin NEG Neg Urine Blood 50 MENSES High Neg Specific [place] NA Low 1.01-1.02 Lipid Profile 03/29/2012 [facility] Triglycerides 95 mg/dL 40-200 (Trig/Chol/HDL) [phone] Cholesterol 166 mg/dL Less than 200 HDL Cholesterol 44 mg/dL 40-60 40 Cholesterol/HDL Ratio 3.8 Average 1-4.44 LDL Cholesterol 103.0 mg/dL High Less Than 100 41 Laboratory test 03/29/2012 [facility] TSH (Thyroid 1.43 0.34-5.60 finding [phone] Stimulating miu/mL Horm) Free T4 0.86 ng/mL 0.61-1.24 Comp Metabolic Panel 03/29/2012 [facility] Sodium 138 mmol/L 133-145 [phone] Potassium 4.3 mmol/L 3.5-5.0 Chloride 105 mmol/L 101-111 Co2 Carbon Dioxide 26.0 mmol/L 22-32 Anion Gap 7.0 mmol/L 2-11 Glucose 101 mg/dL High 70-100 Blood Urea Nitrogen 6 mg/dL 6-24 Creatinine 0.80 mg/dL 0.50-1.40 BUN/Creatinine Ratio 7.5 Low 8-20 Calcium 9.4 mg/dL 8.1-9.9 Total Protein 6.3 g/dL 6.2-8.1 Albumin 3.9 g/dL 3.6-5.4 Globulin 2.4 g/dL 2-4 Albumin/Globulin Ratio 1.6 1-3 Total Bilirubin 1.5 mg/dL 0.4-1.5 Alkaline Phosphatase 54 U/L 30-110 Alt 12 U/L Low 14-54 Ast 21 U/L 12-42 Egfr Non- 79.4 >60 Egfr 102.2 >60 42 Laboratory test 03/29/2012 [facility] Hemoglobin A1c 5.3 % Less than 43 finding [phone] 6.0 CBC Auto Diff 03/29/2012 [facility] White Blood 8.7 4.8-10.8 [phone] Count 10^3/uL Red Blood Count 4.42 10^6/uL 4.0-5.4 Hemoglobin 13.6 g/dL 12.0-16.0 Hematocrit 41 % 35-47 Mean Corpuscular Volume 93 fL 80-97 Mean Corpuscular Hemoglobin 31 pg 27-31 Mean Corpuscular HGB Conc 33 g/dL 31-36 Red Cell Distribution Width 13 % 10.5-15 Platelet Count 259 10^3/uL 150-450 Mean Platelet Volume 9 um3 7.4-10.4 Abs Neutrophils 5.0 10^3/uL 1.5-7.7 Abs Lymphocytes 2.9 10^3/uL 1.0-4.8 Abs Monocytes 0.6 10^3/uL 0-0.8 Abs Eosinophils 0.1 10^3/uL 0-0.6 Abs Basophils 0.1 10^3/uL 0-0.2 Abs Nucleated RBC 0.01 10^3/uL Granulocyte % 57.3 % 38-83 Lymphocyte % 33.5 % 25-47 Monocyte % 7.3 % 1-9 Eosinophil % 1.2 % 0-6 Basophil % 0.7 % 0-2 Nucleated Red Blood Cells % 0.1 Urinalysis 03/30/2010 [facility] Ua Color YELLOW Yellow W/Microscopic [phone] Appearance-Urine CLEAR Clear Specific [place]-Ur 1.020 1.010-1.030 Esterase-Urine TRACE Abnormal Negative Nitrite NEGATIVE Negative [id number] NEGATIVE Negative Protein-Urine NEGATIVE Negative PH-Urine 7.0 5-9 Blood-Urine NEGATIVE Negative Ketones-Urine NEGATIVE Negative Bilirubin-Ur NEGATIVE Negative Glucose-Urine NEGATIVE Negative WBC-Urine 5-10 Abnormal 0-5 RBC-Urine NONE SEEN 0-2 Epith Cells-Ur MODERATE None Bacteria-Urine 1+ None Lipid Profile 03/30/2010 [facility] Triglyceride 76 mg/dL 40-200 (Trig/Chol/HDL) [phone] Cholesterol 204 mg/dL High Less Than 200 44 High Density Lipoprotein 47 mg/dL 40-60 45 Cholesterol/HDL Ratio 4.34 AVERAGE 1-4.44 Low Density Lipoprotein 142 mg/dL High Less Than 100 46 Comp Metabolic Panel 03/30/2010 [facility] Sodium 136 mmol/L 135-145 [phone] Potassium 3.9 mmol/L 3.5-5.0 Chloride 103 mmol/L 101-111 Co2 (Carbon Dioxide) 28.0 mmol/L 22-32 Anion Gap 5.0 mmol/L 2-11 47 Glucose 70 mg/dL 70-100 BUN 8 mg/dL 6-24 Creatinine 0.90 mg/dL 0.50-1.40 One Over Creatinine 1.10 BUN/Creatinine Ratio 8.9 8-20 Calcium 9.3 mg/dL 8.1-9.9 Total Protein 6.6 GM/DL 6.2-8.1 Albumin 4.1 GM/DL 3.6-5.4 Globulin 2.5 GM/DL 2-4 Albumin/Globulin Ratio 1.6 1-3 Bilirubin Total 1.3 mg/dL 0.4-1.5 48 Alkaline Phosphatase 62 U/L 30-110 Alt (SGPT) 11 U/L Low 14-54 Ast (Sgot) 26 U/L 12-42 eGFR Non- 74.5 > 60 eGFR 90.1 > 60 49 Laboratory test 03/30/2010 [facility] Hemoglobin A1c 5.4 % Less Than 50 finding [phone] 6.0 TSH 1.48 MIU/ML 0.34-5.60 Ssa/SSB 03/30/2010 [facility] Ssa NEGATIVE Negative [phone] SSB NEGATIVE Negative CBC With 03/30/2010 [facility] White Blood 9.3 CUMM 4.8-10.8 Electronic Diff [phone] Count Red Cell Count 4.13 CUMM Low 4.2-5.4 Hemoglobin 12.6 g/dL 12.0-16.0 Hematocrit 38 % 35-47 Mean Corpuscular Volume 92 um3 79-97 Mean Corpuscular Hemoglob 31 pg 27-31 Mean Corpuscular HGB Cone 33 g/dL 32-36 Redcell Distribution WDTH 13 % 10.5-15 Platelet Count 312 CUMM 150-450 Mean Platelet Volume 9.0 um3 7.4-10.4 51 Laboratory test 03/30/2010 [facility] Ferritin 15 NG/ ML 11.0-307 finding [phone] Manual 03/30/2010 [facility] Polysegmented 82 % 38 -83 Differential [phone] Neutrophil Lymphocyte 10 % Low 25-47 Monocyte 7 % 0-13 Eosinophil 1 % 0-6 Absolute Neutrophil Count 7.6 RBC Morphology NORMAL Urine DIP 03/30/2010 In House Lab Leukocytes + Neg (607)- - Urine Nitrites NEG Neg Urine pH 5 5-6 Total Protein, Urine NEG Neg Urine Glucose NORM Norm Urine Ketones NEG Neg Urobilinogen NORM Norm Urine Bilirubin NEG Neg Urine Blood ABOUT 50 Neg Specific [place] N/A Low 1.01-1.02 Laboratory 03/30/2010 [facility] Cytology ----- 52 test finding [phone] <SEE NOTE> Laboratory 10/03/2009 [facility] House [facility] Strep NEG Neg test finding (607)- - Screen Laboratory 11/26/2008 [facility] Insulin 44 uU/mL Abnormal 2.6-2 53 test finding [phone] Laboratory 11/26/2008 [facility] Insulin 50 uU/mL Abnormal 2.6-2 54 test finding [phone] 5 Laboratory 11/26/2008 [facility] Insulin 67 uU/mL Abnormal 2.6-2 55 test finding [phone] 5 Comp 11/26/2008 [facility] Sodium 138 mmol/L 135- 1 Metabolic [phone] Panel Potassium 4.6 mmol/L 3.5-5.0 Chloride 103 mmol/L 101-111 Co2 (Carbon Dioxide) 29.0 mmol/L 22-32 Anion Gap 6.0 mmol/L 2-11 56 Glucose 98 mg/dL 70-100 57 BUN 9 mg/dL 6-24 Creatinine 0.70 mg/dL 0.50-1.40 One Over Creatinine 1.40 BUN/Creatinine Ratio 12.9 8-20 Calcium 8.9 mg/dL 8.1-9.9 58 Total Protein 6.9 GM/DL 6.2-8.1 Albumin 3.8 GM/DL 3.6-5.4 Globulin 3.1 GM/DL 2-4 Albumin/Globulin Ratio 1.2 1-3 Bilirubin Total 1.1 mg/dL 0.4-1.5 59 Alkaline Phosphatase 69 U/L 30-110 Alt (SGPT) 10 U/L Low 14-54 Ast (Sgot) 22 U/L 12-42 eGFR Non- 100.1 > 60 eGFR 121.1 > 60 60 Laboratory test 11/26/2008 [facility] Vitamin B12 489 pg/mL 180-914 finding [phone] Insulin 8.7 uU/mL 2.6-25 61 Laboratory test 11/26/2008 [facility] Insulin 52 uU/ mL Abnormal 2.6-25 62 finding [phone] Laboratory test 11/26/2008 [facility] Fasting 92 mg/ dL 70-110 63 finding [phone] Glucose 1HR Glucose 129 mg/dL 64 2HR Glucose 106 mg/dL 65 Laboratory 10/24/2008 [facility] Cytology ----- 66 test finding [phone] <SEE NOTE> Laboratory 10/24/2008 [facility] Urine Culture NF1 67 test finding [phone] Sensitivi Urine DIP 10/24/2008 In House Lab Leukocytes POS ++ Neg (607)- - Urine Nitrites NEG Neg Urine pH 5 5-6 Total Protein, Urine TRACE Neg Urine Glucose NORM Norm Urine Ketones NEG Neg Urobilinogen NORM Norm Urine Bilirubin NEG Neg Urine Blood TRACE Neg Specific [place] N/A Low 1.01-1.02 Lipid Profile 10/10/2008 [facility] Triglyceride 76 mg/dL 40-200 (Trig/Chol/HDL) [phone] Cholesterol 198 mg/dL Less Than 200 68 High Density Lipoprotein 41 mg/dL 40-60 69 Cholesterol/HDL Ratio 4.83 AVERAGE High 1-4.44 Low Density Lipoprotein 142 mg/dL High Less Than 100 70 Laboratory test 10/10/2008 [facility] TSH 1.32 MIU/ ML 0.34-5.60 finding [phone] Thyroxine Free 0.83 NG/ML 0.61-1.24 71 Thyroglobulin AB Screen <1.8 IU/mL <4.0 72 Thyroperoxidase AB 0.3 IU/mL <9.0 73 Comp Metabolic Panel 10/10/2008 [facility] Sodium 138 mmol/L 135-145 [phone] Potassium 4.9 mmol/L 3.5-5.0 Chloride 107 mmol/L 101-111 Co2 (Carbon Dioxide) 28.0 mmol/L 22-32 Anion Gap 3.0 mmol/L 2-11 74 Glucose 87 mg/dL 70-100 75 BUN 8 mg/dL 6-24 Creatinine 0.80 mg/dL 0.50-1.40 One Over Creatinine 1.20 BUN/Creatinine Ratio 10.0 8-20 Calcium 8.9 mg/dL 8.1-9.9 76 Total Protein 6.1 GM/DL Low 6.2-8.1 Albumin 3.6 GM/DL 3.6-5.4 Globulin 2.5 GM/DL 2-4 Albumin/Globulin Ratio 1.4 1-3 Bilirubin Total 1.2 mg/dL 0.4-1.5 77 Alkaline Phosphatase 66 U/L 30-110 Alt (SGPT) 10 U/L Low 14-54 Ast (Sgot) 23 U/L 12-42 eGFR Non- 86.3 > 60 eGFR 104.4 > 60 78 Vitamin D.25 10/10/2008 [facility] 25-Hydroxy Vitamin <4.0 ng/mL () Hydroxy [phone] D2 25-Hydroxy Vitamin D3 27 ng/mL () 25-Hydroxy Vitamin D Total 27 ng/mL () 79 CBC With 10/10/2008 [facility] White Blood 6.2 CUMM 4.8-10.8 Electronic Diff [phone] Count Red Cell Count 4.11 CUMM Low 4.2-5.4 Hemoglobin 12.5 g/dL 12.0-16.0 Hematocrit 37 % 35-47 Mean Corpuscular Volume 91 um3 79-97 Mean Corpuscular Hemoglob 31 pg 27-31 Mean Corpuscular HGB Cone 34 g/dL 32-36 Redcell Distribution WDTH 13 % 10.5-15 Platelet Count 303 CUMM 150-450 Mean Platelet Volume 8.5 um3 7.4-10.4 Gran % 61.1 % 38-83 Lymph % 29.5 % 25-47 Mononuclear % 6.3 % 1-9 Eosinophil % 2.7 % 0-6 Basophil % 0.4 % 0-2 Abs Lymphs 1.8 1.0-4.8 Abs Mononuclear 0.4 0-0.8 Absolute Neutrophil Count 3.8 1.5-7.7 Abs Eosinophils 0.2 0-0.6 Abs Basophils 0 0-0.2 Laboratory test 10/10/2008 [facility] Erythrocyte Sed 20 MM/HR High 0-15 finding [phone] Rate Laboratory test 05/27/2008 [facility] Culture FINAL: NO 80 finding [phone] Sensitivity GROWTH <SEE NOTE> Laboratory test 05/17/2008 [facility] Throat Culture Normal 81 finding [phone] pharyngea <SEE NOTE> Laboratory test 05/11/2008 [facility] House [facility] Strep Screen POS Neg finding (607)- - Laboratory test 04/27/2008 [facility] Strep Screen POS Neg finding (607)- - Surgical 10/27/2007 [facility] Surgical - 82 Pathology [phone] Pathology --- <SEE NOTE> Xray 08/22/2007 [facility] [place] Radiology Sonogram-Thyroi MB CLOSED EXPRESS CHECK-IN# d TRIAGE (607)- - Urine DIP 06/12/2007 [facility] House [facility] Leukocytes NEG Neg (607)- - Urine Nitrites NEG Neg Urine pH 5 5-6 Total Protein, Urine NEG Neg Urine Glucose NORM Norm Urine Ketones NEG Neg Urobilinogen NORM Norm Urine Bilirubin NEG Neg Urine Blood NEG Neg Specific [place] NA Low 1.01-1.02 Lipid Profile 06/12/2007 [facility] Cholesterol/HDL 3.96 1-4.44 83 (Trig/Chol/HDL) [phone] Ratio AVERAGE Cholesterol 190 mg/dL Less Than 200 84 Triglyceride 68 mg/dL 40-200 High Density Lipoprotein 48 mg/dL 40-60 85 Low Density Lipoprotein 128 mg/dL High Less Than 100 86 Laboratory 06/12/2007 [facility] Erythrocyte 29 MM/ HR High 0-15 test finding [phone] Sed Rate Corrina 06/12/2007 [facility] Antinuclear AB NEGATIVE Negative (Antinuclear [phone] Antibodies) Laboratory 06/12/2007 [facility] C Reactive < 0.5 mg/ dL Less Than test finding [phone] Protein 0.5 Urine DIP 06/06/2007 [facility] Leukocytes NEG Neg (607)- - Urine Nitrites NEG Neg Urine pH 7 High 5-6 Total Protein, Urine NEG Neg Urine Glucose NORM Norm Urine Ketones NEG Neg Urobilinogen NORM Norm Urine Bilirubin NEG Neg Urine Blood TRACE Neg Specific [place] N/A Low 1.01-1.02 Laboratory test 04/11/2007 [facility] Thin Prep SEE NOTE 87 finding [phone] W/HPV(Lsil/NAT/Asc) Urine DIP 04/11/2007 [facility] Leukocytes NEG Neg (607)- - Urine Nitrites NEG Neg Urine pH 5 5-6 Total Protein, Urine NEG Neg Urine Glucose NORM Norm Urine Ketones NEG Neg Urobilinogen NORM Norm Urine Bilirubin NEG Neg Urine Blood TRACE Neg Specific [place] N/A Low 1.01-1.02 Laboratory test 01/23/2007 [facility] Throat Normal 88 finding [phone] Culture pharyngea <SEE NOTE> CBC 01/23/2007 [facility] WBC 9.6 x103 4.3-6 [phone] 0.9 RBC 4.34 x106 3.80-5.30 Hemoglobin 12.8 g/dL 11.8-15.8 Hematocrit 39.2 % 35.0-47.0 MCV 90.3 fl 82.0-98.0 MCH 29.5 pg 27.5-33.5 MCHC 32.7 g/dL 32.0-36.0 RDW 12.8 % 11.5-14.5 Platelet Count 351 x103 130-400 MPV 10.8 fl High 6.5-10.5 Segmented Neutrophils 64.9 % 44.0-74.0 Lymphocytes 25.6 % 15.0-45.0 Monocytes 7.7 % 2.0-13.0 Eosinophils 1.4 % 0.0-6.0 Basophils 0.4 % 0.0-2.0 Neutrophil Absolute 6.2 x103 1.4-7.0 Lymphocytes Absolute 2.5 x103 1.0-3.4 Monocyte Absolute 0.7 x103 0.2-1.0 Eosinophil Absolute 0.1 x103 0.0-0.5 Basophil Absolute 0.0 x103 0.0-0.2 Comprehensive 01/23/2007 [facility] Glucose 69 mg/dL Low 70-100 Metabolic [phone] BUN 16 mg/dL 4-18 Creatinine, Serum 0.9 mg/dL 0.5-1.2 Sodium 139 mmol/L 136-146 Potassium 4.5 mmol/L 3.5-5.3 Chloride 103 mmol/L 98-110 Carbon Dioxide 26 mmol/L 20-32 Albumin 4.3 g/dL 3.5-4.7 Protein, Total 7.2 g/dL 6.4-8.2 Calcium 8.9 mg/dL 8.4-10.4 Alkaline Phosphatase 117 U/L 10-118 Sgot (Ast) 25 U/L 3-40 SGPT (Alt) 11 U/L 7-50 Bilirubin, Total 0.70 mg/dL 0.30-1.20 Laboratory 01/23/2007 [facility] TSH (Thyrotropin) 1.240 0.350-5.500 test finding [phone] uIU/ml T-3 Total 138.5 ng/dL 87.0-216.0 T-4 Free 1.0 ng/dL 0.8-1.8 Sedimentation Rate 25 MM/HR High 0-20 GFR (Calculated) >60 89 Laboratory test 01/23/2007 [facility] House [facility] Strep Screen NEG Neg finding (607)- - Surgical 10/21/2006 [facility] Surgical 90 Pathology [phone] Pathology ------ <SEE NOTE> Laboratory test 07/01/2005 [facility] TSH 0.90 0.34-5.60 finding [phone] MIU/ML Vitamin B12 915 pg/mL High 180-914 Corrina (Antinuclear 07/01/2005 [facility] Antinuclear AB 1:80 Abnormal Antibodies) [phone] Antinuclear AB POSITIVE Abnormal Negative Corrina Pattern HOMOGENEOUS Abnormal Basic Metabolic 06/29/2005 [facility] One Over Creatinine 1.25 Panel Stat [phone] Anion Gap 6.0 mmol/L 2-11 91 BUN 16 mg/dL 6-24 Calcium 9.0 mg/dL 8.7-10.2 Chloride 101 mmol/L 101-111 Co2 (Carbon Dioxide) 28.0 mmol/L 22-32 Glucose 91 mg/dL 70-105 Potassium 4.0 mmol/L 3.5-5.0 Sodium 135 mmol/L 135-145 BUN/Creatinine Ratio 20.0 8-20 Creatinine 0.8 mg/dL 0.5-1.4 CBC With 04/10/2003 [facility] Platelet Count 349 CUMM 150-450 Electronic Diff [phone] White Blood Count 6.5 CUMM 4.8-10.8 Hematocrit 41 % 35-47 Hemoglobin 13.6 g/dL 12.0-16.0 Mean Corpuscular HGB Cone 33 g/dL 32-36 Mean Corpuscular Hemoglob 30 pg 27-31 Mean Corpuscular Volume 92 um3 79-97 Mean Platelet Volume 8.2 um3 7.4-10.4 Red Cell Count 4.50 CUMM 4.2-5.4 Redcell Distribution WDTH 12 % 10.5-15 Comp Metabolic 04/10/2003 [facility] Anion Gap 3.0 mmol/L 2-11 92 Panel [phone] Albumin/Globulin Ratio 1.4 1-3 Albumin 3.7 GM/DL 3.6-5.4 BUN 10 mg/dL 6-24 Calcium 9.0 mg/dL 8.7-10.2 Chloride 107 mmol/L 101-111 Co2 (Carbon Dioxide) 30.0 mmol/L 22-32 Creatinine 0.8 mg/dL 0.5-1.4 Globulin 2.7 GM/DL 2-4 Glucose 71 mg/dL 70-105 Potassium 4.2 mmol/L 3.5-5.0 Sodium 140 mmol/L 135-145 Total Protein 6.4 GM/DL 6.2-8.1 BUN/Creatinine Ratio 12.5 8-20 Alkaline Phosphatase 100 U/L 30-110 Alt (SGPT) 9 U/L Low 14-54 Ast (Sgot) 21 U/L 12-42 Bilirubin Total 0.9 mg/dL 0.4-1.5 Laboratory test 04/10/2003 [facility] C Reactive < 0.5 mg/dL Less Than finding [phone] Protein 0.5 CBC With Manual 04/10/2003 [facility] RBC Morphology NORMAL Diff [phone] Atypical Lymph 1 % 0-6 Band Neutrophil 1 % 0-8 Eosenophil 1 % 0-6 Lymphocyte 25 % 5-47 Monocyte 3 % 0-13 Polysegmented Neutrophil 69 % 38-83 Basic Metabolic 10/04/2002 [facility] Anion Gap 8.0 mmol/L 2-11 93 Panel [phone] BUN 12 mg/dL 6-24 Calcium 9.7 mg/dL 8.7-10.2 Chloride 102 mmol/L 101-111 Co2 (Carbon Dioxide) 29.0 mmol/L 22-32 Creatinine 0.8 mg/dL 0.5-1.4 Glucose 83 mg/dL 70-105 Potassium 4.2 mmol/L 3.5-5.0 Sodium 139 mmol/L 135-145 BUN/Creatinine Ratio 15.0 8-20 Laboratory test 10/04/2002 [facility] TSH 1.53 MIU/ ML 0.34-5.60 finding [phone] Lipid Profile 10/04/2002 [facility] Cholesterol 4.40 AVERAGE 1-4.44 (Trig/Chol/HDL) [phone] /HDL Ratio Cholesterol 251 mg/dL High Less Than 200 94 Triglyceride 96 mg/dL 40-200 High Density Lipoprotein 57 mg/dL 40-60 Low Density Lipoprotein 175 mg/dL High Less Than 100 95 Urine DIP 10/01/2002 [facility] House Lab Leukocytes NEG Neg (607)- - Urine Nitrites NEG Neg Urine pH 5 5-6 Total Protein, Urine NEG Neg Urine Glucose NOMR Norm Urine Ketones NEG Neg Urobolinogen NORM Norm Urine Bilirubin NEG Neg Urine Blood NEG Neg Specific [place] NA Low 1.01-1.02 Laboratory test 10/01/2002 [facility] Thin Prep REC'D-SEE finding [phone] Pap Test IMAGE Laboratory test 09/19/2001 [facility] Thin Prep REACT CELL Benign Cell finding [phone] Pap Test [facility] HPVP Panel 07/05/2001 [facility] Low Risk, FINAL 96 [phone] HPV High Risk, HPV FINAL 97 Chlamydia + GC 01/23/2001 [facility] Chlamydia By Dna NEGATIVE Group [phone] Probe GC By Dna Probe NEGATIVE Laboratory test 01/23/2001 [facility] Vaginal Culture FINAL 98 finding [phone] Gram Stain Additional FINAL 99 1 Because ethnic data is not always readily available, this report includes an eGFR for both -Americans and non- Americans. The National Kidney Disease Education Program (NKDEP) does not endorse the use of the MDRD equation for patients that are not between the ages of 18 and 70, are , have extremes of body size, muscle mass, or nutritional status, or are non- or non-. According to the National Kidney Foundation, irrespective of diagnosis, the stage of the disease is based on the level of kidney function: Stage Description GFR(mL/min/1.73 m(2)) 1 Kidney damage with normal or decreased GFR 90 2 Kidney damage with mild decrease in GFR 60-89 3 Moderate decrease in GFR 30-59 4 Severe decrease in GFR 15-29 5 Kidney failure <15 (or dialysis) 2 Therapeutic target for the treatment of diabetes mellitus patients is <7% HBA1C, and in selective patients <6.0%. Please refer to [place] [employer] diabetic care guidelines for further information. 3 [id number] 4 [id number] 5 [id number] 6 Normal Range 180 to 914 Indeterminate Range 145 to 180 Deficient Range <145 7 Desirable: <150 Borderline High: 150-199 High: 200-499 Very High: >500 8 Desirable: <200 Borderline High: 200-239 High: >239 9 Low: <40 Desirable: 40-60 High: >60 10 Desirable: <100 Near Optimal: 100-129 Borderline High: 130-159 High: 160-189 Very High: >189 11 [id number] 12 Because ethnic data is not always readily available, this report includes an eGFR for both -Americans and non- Americans. The National Kidney Disease Education Program (NKDEP) does not endorse the use of the MDRD equation for patients that are not between the ages of 18 and 70, are , have extremes of body size, muscle mass, or nutritional status, or are non- or non-. According to the National Kidney Foundation, irrespective of diagnosis, the stage of the disease is based on the level of kidney function: Stage Description GFR(mL/min/1.73 m(2)) 1 Kidney damage with normal or decreased GFR 90 2 Kidney damage with mild decrease in GFR 60-89 3 Moderate decrease in GFR 30-59 4 Severe decrease in GFR 15-29 5 Kidney failure <15 (or dialysis) 13 SEE RESULT BELOW Name: KRYSTIAN COX : [address]: Sommer Aquino MD Acct: [id number] Unit: [id number] AGE: 46 Location: [facility] Re12/07/16 SEX: F Status: REG REF SPEC: [id number] FELICITA: 12/07/16-1324 [facility] DR: Sommer Aquino MD REQ: [id number] RECD: 12/07/16 STATUS: SOUT _ ORDERED: TP IMAGE ANAL, SHOE DRESSER PHYS INTERP, HPV/Thin Prep, HPV 16/18 GENE COMMENTS: [id number] FINAL DIAGNOSIS Negative for Intraepithelial lesion or Malignancy Reactive cellular changes associated with Inflammation (includes typical repair) A. Ectocervical/Endocervical Specimen Adequacy: Satisfactory of evaluation Transformation zone component identified Patient Information: HPV: High risk HPV RNA testing regardless of pap results. HPV 16/18 Genotype Reflex Actual Specimen Date: 12/07/16 Date of Last Specimen: 04/02/13 Date Time Test Result Flag (u) Normal Range 12/07/16 1324 HPV RNA RFLX GE Negative Negative The high-risk HPV types detected by the assay include: 16, 18, 31, 33, 35, 39, 45, 51, 52, 56, 58, 59, 66, and 68. Signed (signature on file) Kareem Elizalde MD 0939 This Pap test was evaluated with the assistance of the [facility] Test Imaging System. Due to cytologic findings at the locomotive lubricating systems clerk microscope, comprehensive manual rescreening by a Radiological Equipment Specialist may be required. The Pap Smear is a screening test designed to aid in the detection of premalignant and malignant conditions of the uterine cervix. It is not a diagnostic procedure and should not be used as the sole means of detecting cervical cancer. Both false- positive and false- negative reports do occur. Depending on your risk status, a Pap smear should be obtained and evaluated every 1-3 years. END OF REPORT * ML=Testing performed at Main Lab DEPARTMENT OF PATHOLOGY, [address] [place] [address] Kareem Elizalde M.D. Director [facility] # [id number] 14 The high-risk HPV types detected by the assay include: 16, 18, 31, 33, 35, 39, 45, 51, 52, 56, 58, 59, 66, and 68. 15 FASTING 16 FASTING 17 FASTING 18 FASTING 19 FASTING 20 Because ethnic data is not always readily available, this report includes an eGFR for both -Americans and non- Americans. The National Kidney Disease Education Program (NKDEP) does not endorse the use of the MDRD equation for patients that are not between the ages of 18 and 70, are , have extremes of body size, muscle mass, or nutritional status, or are non- or non-. According to the National Kidney Foundation, irrespective of diagnosis, the stage of the disease is based on the level of kidney function: Stage Description GFR(mL/min/1.73 m(2)) 1 Kidney damage with normal or decreased GFR 90 2 Kidney damage with mild decrease in GFR 60-89 3 Moderate decrease in GFR 30-59 4 Severe decrease in GFR 15-29 5 Kidney failure <15 (or dialysis) 21 Test Performed by: [facility] [place] [address] [place] [address] 22 FASTING 23 Therapeutic target for the treatment of diabetes Mellitus patients is <7% HBA1C, and in selective patients <6.0%.Please refer to [place] Diabetes Association Diabetic care guidelines for further information. 24 No bands detected 25 Specific serologic response to B. burgdorferi infection is not detected, but cannot rule out early infection during which low or undetectable antibody levels to B. burgdorferi may be present. If clinically indicated, a new serum specimen should be submitted in 7-14 days. ADDITIONAL INFORMATION CDC criteria require >=5 bands for IgG or >=2 bands for IgM for the Immunoblot to be considered positive. Bands (e.g.,p41) may be detected in patients without Lyme disease, and patterns not meeting the CDC criteria should be interpreted with caution. Immunoblot should be ordered only on specimens that are positive or equivocal by a FDA-licensed Lyme disease antibody screening test (e.g., EIA). Test Performed by: [place] [address] Checker In: Markos Freeman II, M.D., Ph.D. 26 Normal Range 180 to 914 Indeterminate Range 145 to 180 Deficient Range <145 27 Because ethnic data is not always readily available, this report includes an eGFR for both -Americans and non- Americans. The National Kidney Disease Education Program (NKDEP) does not endorse the use of the MDRD equation for patients that are not between the ages of 18 and 70, are , have extremes of body size, muscle mass, or nutritional status, or are non- or non-. According to the National Kidney Foundation, irrespective of diagnosis, the stage of the disease is based on the level of kidney function: Stage Description GFR(mL/min/1.73 m(2)) 1 Kidney damage with normal or decreased GFR 90 2 Kidney damage with mild decrease in GFR 60-89 3 Moderate decrease in GFR 30-59 4 Severe decrease in GFR 15-29 5 Kidney failure <15 (or dialysis) 28 Therapeutic target for the treatment of diabetes Mellitus patients is <7% HBA1C, and in selective patients <6.0%.Please refer to [employer] Diabetes Association Diabetic care guidelines for further information. 29 RUN DATE: 11/28/13 [facility] LAB LIVE PAGE 1 RUN TIME: [address] [place] [address] Specimen Inquiry Name: GILES FULTONE Mai : [address]: Lenora Drummond NP Acct: [id number] Unit: [id number] AGE: 43 Location: [facility] Re11/27/13 SEX: F Status: REG REF SPEC: [id number] FELICITA: 11/27/13-[address]: Lenora Drummond NP REQ: [id number] RECD: 11/27/13 STATUS: COMP _ SOURCE: OFE SPDESC: ORDERED: Affirm QUERIES: Medent Number [id number] Procedure Result Verified Site Affirm Vaginal DNA Probe Final 11/28/13- 1108 ML Organism 1 Negative Trichomonas Organism 2 POSITIVE GARDNERELLA Organism 3 Negative Dixie The presence of G. vaginalis, although suggestive, is not diagnostic for bacterial vaginosis. Results should be interpreted in conjunction with other clinical and laboratory data available. Women with vaginal discharge should be evaluated for risk factors of cervicitis and pelvic inflammatory disease, toxic shock syndrome (S.aureus), and if present, evaluated for organisms not included in this assay such as N. gonorrhoeae, C. trachomatis, Mobiluncus, Mycoplasma and/or Prevotella. Mixed infections may occur. The performance of this test on patient specimens collected during or immediately after antimicrobial therapy is unknown. The presence or absence of Dixie species, G. vaginalis or T. vaginalis cannot be used as a test for therapeutic success or failure. END OF REPORT * ML=Testing performed at Main Lab DEPARTMENT OF PATHOLOGY, [address] [place] [address] Kareem Elizalde M.D. Director [facility] # [id number] 30 RUN DATE: 11/29/13 [facility] LAB LIVE PAGE 1 RUN TIME: [address] [place] [address] Specimen Inquiry Name: KRYSTIAN FULTON : [address]: Lenora Drummond FIELD GEOLOGIST Acct: [id number] Unit: [id number] AGE: 43 Location: [facility] Re11/27/13 SEX: F Status: REG REF SPEC: [id number] FELICITA: 11/27/13-[address]: Lenora Drummond FIELD GEOLOGIST REQ: [id number] RECD: 11/27/13-1826 STATUS: COMP _ SOURCE: CERVIX SPDESC: ORDERED: Genital Culture QUERIES: Medent Number [id number] Procedure Result Verified Site Genital Culture Final 11/29/13- 1000 ML Organism 1 DOV VAGINALIS - PRESUMPTIVE Quantity 2+ Organism 2 YEAST Quantity 1+ Organism 3 NORMAL NICOLAS Quantity 2+ Routine genital cultures do not include selective agar for Neisseria gonorrhoeae. Molecular testing offers better test sensitivity and therefore is the preferred test methodology for identifying this organism. END OF REPORT * ML=Testing performed at Main Lab DEPARTMENT OF PATHOLOGY, [facility] [address] [place], [place] [address] Kareem Elizalde M.D. Director [facility] # [id number] 31 It is recognized that currently available assays for the detection of antibodies to HIV-1 and/or HIV-2 may not detect all infected individuals. HIV antibodies may be undetectable in some stages of the infection and in some clinical conditions. The performance of this assay has not been established for populations of infants or children. Assayed by Chemiluminescence Microparticle Immunoassay on the Siemens Advia Centaur CP. Values obtained with different methods or kits cannot be used interchangeably.The diagnostic specificity of the ADVIA Centaur 1/O/2 Enhanced assay in the low risk population was 99.90% (6052/6058) with a 95% confidence interval of 99.78 to 99.96%. 32 Warning: A positive result is not useful for establishing a diagnosis of syphilis. In most situations, such a result may reflect a prior treated infection; a negative result can exclude a diagnosis of syphilis except for incubating or early primary disease. 33 RUN DATE: 04/03/13 [facility] LAB LIVE PAGE 1 RUN TIME: 1306 [facility] [employer] [place], [place] [address] Specimen Inquiry Name: KRYSTIAN FULTON : [address]: Sommer Aquino MD Acct: [id number] Unit: [id number] AGE: 42 Location: [facility] Re04/02/13 SEX: F Status: REG REF SPEC: [id number] FELICITA: 04/02/13-[address]: Sommer Aquino MD REQ: [id number] RECD: 04/02/13-1226 STATUS: SOUT _ ORDERED: IMAGE ANALYSIS, HPV/Thin Prep FINAL DIAGNOSIS Negative for Intraepithelial lesion or Malignancy COMMENTS: Specimen sent to [facility] in [place], [place] on 04/03/13 by [id number] at 1254. Results will be reported separately. A. Ectocervical/Endocervical Specimen Adequacy: Satisfactory of evaluation Transformation zone component identified Patient Information: HPV: High risk HPV DNA testing regardless of pap results. Actual Specimen Date: 04/02/13 Last Menstrual Date: 03/09/13 Date of Last Specimen: 04/05/12 Signed (signature on file) FELIZ Madden (ASCP) 04/03 1301 This Pap test was evaluated with the assistance of the ThinPrep Test Imaging System. Due to cytologic findings at the locomotive lubricating systems clerk microscope, comprehensive manual rescreening by a Radiological Equipment Specialist may be required. The Pap Smear is a screening test designed to aid in the detection of premalignant and malignant conditions of the uterine cervix. It is not a diagnostic procedure and should not be used as the sole means of detecting cervical cancer. Both false- positive and false- negative reports do occur. Depending on your risk status, a Pap smear shoudl be obtained and evaluated every 1-3 years. END OF REPORT * ML=Testing performed at Main Lab DEPARTMENT OF PATHOLOGY, [facility] [address] [place], [place] [address] Kareem Elizalde M.D. Director [facility] Permit #[id number] 34 The following Other High Risk HPV types were not detected: 31, 33, 35, 39, 45, 51, 52, 56, 58, 59, 66, and 68 Test Performed by: [place] [address] Checker In: Don Can III, M.D. 35 RUN DATE: 04/03/13 [facility] LAB LIVE PAGE 1 RUN TIME: [address] [place] [address] Specimen Inquiry Name: KRYSTIAN FULTON : [address]: Sommer Aquino MD Acct: [id number] Unit: [id number] AGE: 42 Location: [facility] Re04/02/13 SEX: F Status: REG REF SPEC: [id number] FELICITA: 04/02/133 [facility] DR: Sommer Aquino MD REQ: [id number] RECD: 04/02/13 STATUS: COMP _ SOURCE: URINE SPDESC: ORDERED: GC/Chlam RNA QUERIES: Medent Number [id number] Procedure Result Verified Site Chlamydia Trachomatis RNA Final 04/03/13- 1341 ML NEGATIVE for Chlamydia trachomatis rRNA GC (N. gonorrhoeae) RNA Final 04/03/13- 1435 ML NEGATIVE for Neisseria gonorrhoeae rRNA A negative result does not preclude the presence of a C. trachomatis or N. gonorrhoeae infection because results are dependent on adequate specimen collection, absence of inhibitors, and sufficient rRNA to be detected. Test results may be affected by improper specimen collection, improper storage, technical error, or specimen mixup. Limitations of the Procedure: The Aptima Combo 2 Assay is not intended for the evaluation of suspected sexual abuse or for other medico-legal indications. For those patients for whom a false positive result may have adverse psychosocial impact, the [facility] recommends retesting by a method using an alternate technology. Therapeutic failure or success cannot be determined with the Aptima Combo 2 Assay since nucleic acid may persist following appropriate antimicrobial therapy. Results from the Aptima Combo 2 Assay should be interpreted in conjunction with other laboratory and clinical data available to the clinican. CONTINUED ON NEXT PAGE * ML=Testing performed at Main Lab DEPARTMENT OF PATHOLOGY, [facility] [address] [place] [address] Kareem Elizalde M.D. Director [facility] Permit #[id number] RUN DATE: 04/03/13 [facility] LAB LIVE PAGE 2 RUN TIME: 1435 [facility] [employer] [facility] [place], [place] [address] Specimen Inquiry Patient: KRYSTIAN FULTON [id number] (Continued) Specimen: [id number] Collected: 04/02/13 Received: 04/02/13-1251 (Continued) Procedure Result Verified Site GC (N. gonorrhoeae) RNA Final (continued) 04/03/13- 1435 Performance characteristics for detecting C. trachomatis and N. gonorrhoeae are derived from high prevalence populations. Positive results in low prevalence populations should be interpreted carefully with the understanding that the likelihood of a false positive may be higher than a true positive. END OF REPORT * ML=Testing performed at Main Lab DEPARTMENT OF PATHOLOGY, [address] [place] [address] Kareem Elizalde M.D. Director [facility] Permit #[id number] 36 Therapeutic target for the treatment of diabetes Mellitus patients is <7% HBA1C, and in selective patients <6.0%.Please refer to [place] Diabetes Association Diabetic care guidelines for further information. 37 -- REFERENCE VALUE -- 25-HYDROXY D TOTAL (D2+D3) Optimum levels in the healthy population are 20-50, patients with bone disease may benefit from higher levels within this range. Test Performed by: [facility] [address] [address] Checker In: Don Can III, M.D. 38 Because ethnic data is not always readily available, this report includes an eGFR for both -Americans and non- Americans. The National Kidney Disease Education Program (NKDEP) does not endorse the use of the MDRD equation for patients that are not between the ages of 18 and 70, are , have extremes of body size, muscle mass, or nutritional status, or are non- or non-. According to the National Kidney Foundation, irrespective of diagnosis, the stage of the disease is based on the level of kidney function: Stage Description GFR(mL/min/1.73 m(2)) 1 Kidney damage with normal or decreased GFR 90 2 Kidney damage with mild decrease in GFR 60-89 3 Moderate decrease in GFR 30-59 4 Severe decrease in GFR 15-29 5 Kidney failure <15 (or dialysis) 39 RUN DATE: 04/06/12 [facility] LAB LIVE PAGE 1 RUN TIME: [address] [place], [place] [address] Specimen Inquiry Name: KRYSTIAN FULTON : [address]: Sommer Aquino MD Acct: [id number] Unit: [id number] AGE: 41 Location: [facility] Re04/05/12 SEX: F Status: REG REF SPEC: [id number] FELICITA: 04/05/12-[address]: Sommer Aquino MD REQ: [id number] RECD: 02/06/13-1441 STATUS: SOUT _ ORDERED: IMAGE ANALYSIS FINAL DIAGNOSIS Negative for Intraepithelial lesion or Malignancy A. Ectocervical/Endocervical Specimen Adequacy: Satisfactory of evaluation Transformation zone component identified Patient Information: HPV: Thin Layer Pap Test w/reflex to high risk HPV DNA testing when ASCUS Actual Specimen Date: 04/05/12 Last Menstrual Date: 04/04/12 Date of Last Specimen: 03/30/10 Signed (signature on file) Destiny Bonnie AR (ASCP) 04/06/12 1258 This Pap test was evaluated with the assistance of the [employer] Test Imaging System. Due to cytologic findings at the locomotive lubricating systems clerk microscope, comprehensive manual rescreening by a Radiological Equipment Specialist may be required. The Pap Smear is a screening test designed to aid in the detection of premalignant and malignant conditions of the uterine cervix. It is not a diagnostic procedure and should not be used as the sole means of detecting cervical cancer. Both false- positive and false- negative reports do occur. Depending on your risk status, a Pap smear shoudl be obtained and evaluated every 1-3 years. END OF REPORT * ML=Testing performed at Main Lab DEPARTMENT OF PATHOLOGY, [address] [place] [address] Kareem Elizalde M.D. Director [facility] Permit #[id number] 40 HDL Interpretation: Undesirable: High Risk: Less than 40 MG/DL Desirable: Low Risk: Greater than 60 MG/DL 41 LDL Interpretation: Low Risk Optimal Level: LDL Less than 100 MG/DL Near or Above Optimal: LDL 100-129 MG/DL Borderline High Risk: LDL 130-159 MG/DL High Risk: LDL 160-189 MG/DL Very High Risk: LDL Greater than 189 MG/DL 42 Because ethnic data is not always readily available, this report includes an eGFR for both -Americans and non- Americans. The National Kidney Disease Education Program (NKDEP) does not endorse the use of the MDRD equation for patients that are not between the ages of 18 and 70, are , have extremes of body size, muscle mass, or nutritional status, or are non- or non-. According to the National Kidney Foundation, irrespective of diagnosis, the stage of the disease is based on the level of kidney function: Stage Description GFR(mL/min/1.73 m(2)) 1 Kidney damage with normal or decreased GFR 90 2 Kidney damage with mild decrease in GFR 60-89 3 Moderate decrease in GFR 30-59 4 Severe decrease in GFR 15-29 5 Kidney failure <15 (or dialysis) 43 Therapeutic target for the treatment of diabetes Mellitus patients is <7% HBA1C, and in selective patients <6.0%.Please refer to [place] Diabetes Association Diabetic care guidelines for further information. 44 CHOLESTEROL INTERPRETATION: Desirable: Less than 200 MG/DL Borderline-High Risk: 200-239 MG/DL High-Risk: 240 MG/DL and over 45 HDL INTERPRETATION: Undesirable: High Risk: Less than 40 MG/DL Desirable: Low Risk: Greater than 60 MG/DL 46 LDL INTERPRETATION: Low Risk Optimal Level: LDL Less than 100 MG/DL Near or Above Optimal: LDL 100-129 MG/DL Borderline High Risk: LDL 130-159 MG/DL High Risk: LDL 160-189 MG/DL Very High Risk: LDL Greater than 189 MG/DL 47 Anion gap measurement may be of limited value in the presence of any alkalosis, especially in a combined acid base disorder. . 48 A metabolite of Naproxen, O-desmethylnaproxen, has been shown to interfere with the Jendrassik-[place] method for measuring total bilirubin. Samples from patients who have taken Naproxen have shown spurious elevation in total bilirubin levels. 49 Because ethnic data is not always readily available, this report includes an eGFR for both -Americans and non- Americans. The National Kidney Disease Education Program (NKDEP) does not endorse the use of the MDRD equation for patients that are not between the ages of 18 and 70, are , have extremes of body size, muscle mass, or nutritional status, or are non- or non-. According to the National Kidney Foundation, irrespective of diagnosis, the stage of the disease is based on the level of kidney function: Stage Description GFR(mL/min/1.73 m(2)) 1 Kidney damage with normal or decreased GFR 90 2 Kidney damage with mild decrease in GFR 60-89 3 Moderate decrease in GFR 30-59 4 Severe decrease in GFR 15-29 5 Kidney failure <15 (or dialysis) 50 THERAPEUTIC TARGET FOR THE TREATMENT OF DIABETES MELLITUS PATIENTS IS <7% HBA1C, AND IN SELECTIVE PATIENTS <6.0%. PLEASE REFER TO [place]OC[employer]ATION DIABETIC CARE GUIDELINES FOR FURTHER INFORMATION. 51 Lymphopenia % 52 ---- RUN DATE: 03/31/10 [facility] NMI LIVE PAGE 1 RUN TIME: 1147 Specimen Inquiry RUN USER: INTERFACE -- Name: KRYSTIAN FULTON Status: REG REF Re03/30/10 Age/Sex: 39/F Unit#: [id number] Location: [facility] : [birth year] -- Specimen: [id number] SOUT Spec Date: 03/30/[address]: Sommer edmonds MD Spec Type: CYTOLOGY Received: 03/30/10-1455 Copies to: SOURCE ECTOCERVICAL/ENDOCERVICAL Thin Prep with Reflex HPV Test PATIENT INFORMATION ACTUAL COLLECTION DATE: 03/30/10 LAST MENSTRUAL PERIOD: 02/17/10 ADEQUACY OF SPECIMEN Satisfactory for evaluation * Transformation zone component identified * DIAGNOSIS NEGATIVE FOR INTRAEPITHELIAL LESION OR MALIGNANCY * This Pap test was evaluated with the assistance of the [facility] Pap Test Imaging System. The Pap Smear is a screening test designed to aid in the detection of premalign ant and malignant conditions of the uterine cervix. It is not a diagnostic procedure a nd should not be used as the sole means of detecting cervical cancer. Both false- positiv e and false-negative reports do occur. Depending on your risk status, a Pap smear katherine uld be obtained and evaluated every one to three years. Initial evaluation performed by Star ANTONIO([facility]) 03/31/10 Final Interpretation electronically signed by: Star ANTONIO([facility]) 03/31/10 1147 -- -- DEPARTMENT OF PATHOLOGY, [address] [place] [address] [facility] Permit #[id number] Kareem Elizalde M.D. Director Alonso Rodriguez M.D. Acquisitions Analyst Dir guerrero -- 53 Test Performed by: [facility] Dpt of Lab Med and Pathology [address] [place] [address] Checker In: Don Can III, M.D. 54 Test Performed by: [facility] Med [facility] Pathology [address] [place] [address] Checker In: Don Can III, M.D. 55 Test Performed by: [facility] of [facility] Med and Pathology [address] [place] [address] Checker In: Don Can III, M.D. 56 Anion gap measurement may be of limited value in the presence of any alkalosis, especially in a combined acid base disorder. . 57 Note change in reference range as of 10/19/07. The change was based on recommendations from the [place] Diabetes Association. 58 Please note change in reference range effective 07 . 59 A metabolite of Naproxen, O-desmethylnaproxen, has been shown to interfere with the Jendrtayik-Yennifer method for measuring total bilirubin. Samples from patients who have taken Naproxen have shown spurious elevation in total bilirubin levels. 60 Because ethnic data is not always readily available, this report includes an eGFR for both -Americans and non- Americans. The National Kidney Disease Education Program (NKDEP) does not endorse the use of the MDRD equation for patients that are not between the ages of 18 and 70, are , have extremes of body size, muscle mass, or nutritional status, or are non- or non-. According to the National Kidney Foundation, irrespective of diagnosis, the stage of the disease is based on the level of kidney function: Stage Description GFR(mL/min/1.73 m(2)) 1 Kidney damage with normal or decreased GFR 90 2 Kidney damage with mild decrease in GFR 60-89 3 Moderate decrease in GFR 30-59 4 Severe decrease in GFR 15-29 5 Kidney failure <15 (or dialysis) 61 Test Performed by: [facility] of Lab Med and Pathology [address] [place] [address] Checker In: Don Can III, M.D. 62 Test Performed by: [facility] of [facility] Med and Pathology [address] [place] [address] Checker In: Don Can III, M.D. 63 3HR GTT SPECIAL FAST SERUM FASTING GLUCOSE from [id number] 3HR GTT SPECIAL 2.5 HR SER 2 1/2 HR GLUC from 928:[id number]. 3HR GTT SPECIAL 1.5 HR SER 1 1/2HR GLUCOSE from 928:[id number] 3HR GTT SPECIAL 1/2 HR SER 1/2 HR GLUCOSE from 928:[id number] 3HR GTT SPECIAL 2.5 HR SER 2 1/2 HR GLUC from 928:[id number]. 3HR GTT SPECIAL 1.5 HR SER 1 1/2HR GLUCOSE from 29:[id number] 3HR GTT SPECIAL 1/2 HR SER 1/2 HR GLUCOSE from 928:[id number] 3HR GTT SPECIAL 2.5 HR SER 2 1/2 HR GLUC from 928:[id number]. 3HR GTT SPECIAL 1.5 HR SER 1 1/2HR GLUCOSE from 928:[id number] 3HR GTT SPECIAL 1/2 HR SER 1/2 HR GLUCOSE from 928:[id number] 3HR GTT SPECIAL 2.5 HR SER 2 1/2 HR GLUC from 29:[id number]. 3HR GTT SPECIAL 1.5 HR SER 1 1/2HR GLUCOSE from 29:[id number] 3HR GTT SPECIAL 1/2 HR SER 1/2 HR GLUCOSE from 29: [id number] 3HR GTT SPECIAL 2.5 HR SER 2 1/2 HR GLUC from 29:[id number]. 3HR GTT SPECIAL 1.5 HR SER 1 1/2HR GLUCOSE from 29:[id number] 3HR GTT SPECIAL 1/2 HR SER 1/2 HR GLUCOSE from 0929:[id number] 3HR GTT SPECIAL 2.5 HR SER 2 1/2 HR GLUC from 0929: [id number]. 3HR GTT SPECIAL 1.5 HR SER 1 1/2HR GLUCOSE from 29:[id number] 3HR GTT SPECIAL 1/2 HR SER 1/2 HR GLUCOSE from 29:[id number] 3HR GTT SPECIAL 2.5 HR SER 2 1/2 HR GLUC from 29:[id number]. 3HR GTT SPECIAL 1.5 HR SER 1 1/2HR GLUCOSE from 29: [id number] 3HR GTT SPECIAL 1/2 HR SER 1/2 HR GLUCOSE from 29:[id number] 3HR GTT SPECIAL 2.5 HR SER 2 1/2 HR GLUC from 29:[id number]. 3HR GTT SPECIAL 1.5 HR SER 1 1/2HR GLUCOSE from 29:[id number] 3HR GTT SPECIAL 1/2 HR SER 1/2 HR GLUCOSE from 29:[id number] 3HR GTT SPECIAL 2.5 HR SER 2 1/2 HR GLUC from 29:[id number]. 3HR GTT SPECIAL 1.5 HR SER 1 1/2HR GLUCOSE from 29:[id number] 3HR GTT SPECIAL 1/2 HR SER 1/2 HR GLUCOSE from 29:[id number] 3HR GTT SPECIAL 2.5 HR SER 2 1/2 HR GLUC from 29:[id number]. 3HR GTT SPECIAL 1.5 HR SER 1 1/2HR GLUCOSE from 29:[id number] 3HR GTT SPECIAL 1/2 HR SER 1/2 HR GLUCOSE from 29:[id number] 3HR GTT SPECIAL 2.5 HR SER 2 1/2 HR GLUC from 29:[id number]. 3HR GTT SPECIAL 1.5 HR SER 1 1/2HR GLUCOSE from 29:[id number] 3HR GTT SPECIAL 1/2 HR SER 1/2 HR GLUCOSE from 0929: [id number] 3HR GTT SPECIAL 2.5 HR SER 2 1/2 HR GLUC from 29:[id number]. 3HR GTT SPECIAL 1.5 HR SER 1 1/2HR GLUCOSE from 29:[id number] 3HR GTT SPECIAL 1/2 HR SER 1/2 HR GLUCOSE from 29:[id number] 3HR GTT SPECIAL 2.5 HR SER 2 1/2 HR GLUC from 0929: [id number]. 3HR GTT SPECIAL 1.5 HR SER 1 1/2HR GLUCOSE from 0929:[id number] 3HR GTT SPECIAL 1/2 HR SER 1/2 HR GLUCOSE from 29:[id number] 3HR GTT SPECIAL 2.5 HR SER 2 1/2 HR GLUC from 29:[id number]. 3HR GTT SPECIAL 1.5 HR SER 1 1/2HR GLUCOSE from 29: [id number] 3HR GTT SPECIAL 1/2 HR SER 1/2 HR GLUCOSE from 29:[id number] 3HR GTT SPECIAL 2.5 HR SER 2 1/2 HR GLUC from 29:[id number]. 3HR GTT SPECIAL 1.5 HR SER 1 1/2HR GLUCOSE from 29:[id number] 3HR GTT SPECIAL 1/2 HR SER 1/2 HR GLUCOSE from 29:[id number] 3HR GTT SPECIAL 2.5 HR SER 2 1/2 HR GLUC from 29:[id number]. 3HR GTT SPECIAL 1.5 HR SER 1 1/2HR GLUCOSE from 29:[id number] 3HR GTT SPECIAL 1/2 HR SER 1/2 HR GLUCOSE from 29:[id number] 3HR GTT SPECIAL 2.5 HR SER 2 1/2 HR GLUC from 29:[id number]. 3HR GTT SPECIAL 1.5 HR SER 1 1/2HR GLUCOSE from 29:[id number] 3HR GTT SPECIAL 1/2 HR SER 1/2 HR GLUCOSE from 29:[id number] 3HR GTT SPECIAL 2.5 HR SER 2 1/2 HR GLUC from 29:[id number]. 3HR GTT SPECIAL 1.5 HR SER 1 1/2HR GLUCOSE from 29:[id number] 3HR GTT SPECIAL 1/2 HR SER 1/2 HR GLUCOSE from 29: [id number] 3HR GTT SPECIAL 2.5 HR SER 2 1/2 HR GLUC from 29:[id number]. 3HR GTT SPECIAL 1.5 HR SER 1 1/2HR GLUCOSE from 29:[id number] 3HR GTT SPECIAL 1/2 HR SER 1/2 HR GLUCOSE from 29:[id number] 3HR GTT SPECIAL 2.5 HR SER 2 1/2 HR GLUC from 0929: [id number]. 3HR GTT SPECIAL 1.5 HR SER 1 1/2HR GLUCOSE from 0929:[id number] 3HR GTT SPECIAL 1/2 HR SER 1/2 HR GLUCOSE from 0929:[id number] 3HR GTT SPECIAL 2.5 HR SER 2 1/2 HR GLUC from 0929:[id number]. 3HR GTT SPECIAL 1.5 HR SER 1 1/2HR GLUCOSE from 0929: [id number] 3HR GTT SPECIAL 1/2 HR SER 1/2 HR GLUCOSE from 0929:[id number] 3HR GTT SPECIAL 2.5 HR SER 2 1/2 HR GLUC from 29:[id number]. 3HR GTT SPECIAL 1.5 HR SER 1 1/2HR GLUCOSE from 29:[id number] 3HR GTT SPECIAL 1/2 HR SER 1/2 HR GLUCOSE from 29:[id number] 3HR GTT SPECIAL 2.5 HR SER 2 1/2 HR GLUC from 29:[id number]. 3HR GTT SPECIAL 1.5 HR SER 1 1/2HR GLUCOSE from 29:[id number] 3HR GTT SPECIAL 1/2 HR SER 1/2 HR GLUCOSE from 29:[id number] 3HR GTT SPECIAL 2.5 HR SER 2 1/2 HR GLUC from 0929:[id number]. 3HR GTT SPECIAL 1.5 HR SER 1 1/2HR GLUCOSE from 0929:[id number] 3HR GTT SPECIAL 1/2 HR SER 1/2 HR GLUCOSE from 29:[id number] 3HR GTT SPECIAL 2.5 HR SER 2 1/2 HR GLUC from 29:[id number]. 3HR GTT SPECIAL 1.5 HR SER 1 1/2HR GLUCOSE from 0929:[id number] 3HR GTT SPECIAL 1/2 HR SER 1/2 HR GLUCOSE from 0929: [id number] 3HR GTT SPECIAL 2.5 HR SER 2 1/2 HR GLUC from 0929:[id number]. 3HR GTT SPECIAL 1.5 HR SER 1 1/2HR GLUCOSE from 0929:[id number] 3HR GTT SPECIAL 1/2 HR SER 1/2 HR GLUCOSE from 0929:[id number] 3HR GTT SPECIAL 2.5 HR SER 2 1/2 HR GLUC from 0929: [id number]. 3HR GTT SPECIAL 1.5 HR SER 1 1/2HR GLUCOSE from 29:[id number] 3HR GTT SPECIAL 1/2 HR SER 1/2 HR GLUCOSE from 0929:[id number] 3HR GTT SPECIAL 2.5 HR SER 2 1/2 HR GLUC from 0929:[id number]. 3HR GTT SPECIAL 1.5 HR SER 1 1/2HR GLUCOSE from 0929: [id number] 3HR GTT SPECIAL 1/2 HR SER 1/2 HR GLUCOSE from 0929:[id number] 3HR GTT SPECIAL 2.5 HR SER 2 1/2 HR GLUC from 29:[id number]. 3HR GTT SPECIAL 1.5 HR SER 1 1/2HR GLUCOSE from 29:[id number] 3HR GTT SPECIAL 1/2 HR SER 1/2 HR GLUCOSE from 29:[id number] 3HR GTT SPECIAL 2.5 HR SER 2 1/2 HR GLUC from 29:[id number]. 3HR GTT SPECIAL 1.5 HR SER 1 1/2HR GLUCOSE from 29:[id number] 3HR GTT SPECIAL 1/2 HR SER 1/2 HR GLUCOSE from 29:[id number] 3HR GTT SPECIAL 2.5 HR SER 2 1/2 HR GLUC from 29:[id number]. 3HR GTT SPECIAL 1.5 HR SER 1 1/2HR GLUCOSE from 29:[id number] 3HR GTT SPECIAL 1/2 HR SER 1/2 HR GLUCOSE from 0929:[id number] 3HR GTT SPECIAL 2.5 HR SER 2 1/2 HR GLUC from 29:[id number]. 3HR GTT SPECIAL 1.5 HR SER 1 1/2HR GLUCOSE from 29:[id number] 3HR GTT SPECIAL 1/2 HR SER 1/2 HR GLUCOSE from 0929: [id number] 3HR GTT SPECIAL 2.5 HR SER 2 1/2 HR GLUC from 29:[id number]. 3HR GTT SPECIAL 1.5 HR SER 1 1/2HR GLUCOSE from 0929:[id number] 3HR GTT SPECIAL 1/2 HR SER 1/2 HR GLUCOSE from 0929:[id number] 3HR GTT SPECIAL 2.5 HR SER 2 1/2 HR GLUC from 0929: [id number]. 3HR GTT SPECIAL 1.5 HR SER 1 1/2HR GLUCOSE from 0929:[id number] 3HR GTT SPECIAL 1/2 HR SER 1/2 HR GLUCOSE from 0929:[id number] 3HR GTT SPECIAL 2.5 HR SER 2 1/2 HR GLUC from 0929:[id number]. 3HR GTT SPECIAL 1.5 HR SER 1 1/2HR GLUCOSE from 0929: [id number] 3HR GTT SPECIAL 1/2 HR SER 1/2 HR GLUCOSE from 0929:[id number] 3HR GTT SPECIAL 2.5 HR SER 2 1/2 HR GLUC from 0929:[id number]. 3HR GTT SPECIAL 1.5 HR SER 1 1/2HR GLUCOSE from 0929:[id number] 3HR GTT SPECIAL 1/2 HR SER 1/2 HR GLUCOSE from 29:[id number] 3HR GTT SPECIAL 2.5 HR SER 2 1/2 HR GLUC from 29:[id number]. 3HR GTT SPECIAL 1.5 HR SER 1 1/2HR GLUCOSE from 29:[id number] 3HR GTT SPECIAL 1/2 HR SER 1/2 HR GLUCOSE from 29:[id number] 3HR GTT SPECIAL 2.5 HR SER 2 1/2 HR GLUC from 29:[id number]. 3HR GTT SPECIAL 1.5 HR SER 1 1/2HR GLUCOSE from 29:[id number] 3HR GTT SPECIAL 1/2 HR SER 1/2 HR GLUCOSE from 0929:[id number] 3HR GTT SPECIAL 2.5 HR SER 2 1/2 HR GLUC from 0929:[id number]. 3HR GTT SPECIAL 1.5 HR SER 1 1/2HR GLUCOSE from 0929:[id number] 3HR GTT SPECIAL 1/2 HR SER 1/2 HR GLUCOSE from 0929: [id number] 3HR GTT SPECIAL 2.5 HR SER 2 1/2 HR GLUC from 0929:[id number]. 3HR GTT SPECIAL 1.5 HR SER 1 1/2HR GLUCOSE from 0929:[id number] 3HR GTT SPECIAL 1/2 HR SER 1/2 HR GLUCOSE from 0929:[id number] 3HR GTT SPECIAL 2.5 HR SER 2 1/2 HR GLUC from 0929: [id number]. 3HR GTT SPECIAL 1.5 HR SER 1 1/2HR GLUCOSE from 0929:[id number] 3HR GTT SPECIAL 1/2 HR SER 1/2 HR GLUCOSE from 0929:[id number] 3HR GTT SPECIAL 2.5 HR SER 2 1/2 HR GLUC from 0929:[id number]. 3HR GTT SPECIAL 1.5 HR SER 1 1/2HR GLUCOSE from 0929: [id number] 3HR GTT SPECIAL 1/2 HR SER 1/2 HR GLUCOSE from 0929:[id number] 3HR GTT SPECIAL 2.5 HR SER 2 1/2 HR GLUC from 0929:[id number]. 3HR GTT SPECIAL 1.5 HR SER 1 1/2HR GLUCOSE from 0929:[id number] 3HR GTT SPECIAL 1/2 HR SER 1/2 HR GLUCOSE from 0929:[id number] 3HR GTT SPECIAL 2.5 HR SER 2 1/2 HR GLUC from 0929:[id number]. 3HR GTT SPECIAL 1.5 HR SER 1 1/2HR GLUCOSE from 0929:[id number] 3HR GTT SPECIAL 1/2 HR SER 1/2 HR GLUCOSE from 29:[id number] 3HR GTT SPECIAL 2.5 HR SER 2 1/2 HR GLUC from 29:[id number]. 3HR GTT SPECIAL 1.5 HR SER 1 1/2HR GLUCOSE from 0929:[id number] 3HR GTT SPECIAL 1/2 HR SER 1/2 HR GLUCOSE from 0929:[id number] 3HR GTT SPECIAL 2.5 HR SER 2 1/2 HR GLUC from 0929:[id number]. 3HR GTT SPECIAL 1.5 HR SER 1 1/2HR GLUCOSE from 0929:[id number] 3HR GTT SPECIAL 1/2 HR SER 1/2 HR GLUCOSE from 0929: [id number] 3HR GTT SPECIAL 2.5 HR SER 2 1/2 HR GLUC from 0929:[id number]. 3HR GTT SPECIAL 1.5 HR SER 1 1/2HR GLUCOSE from 0929:[id number] 3HR GTT SPECIAL 1/2 HR SER 1/2 HR GLUCOSE from 0929:[id number] 3HR GTT SPECIAL 2.5 HR SER 2 1/2 HR GLUC from 0929: [id number]. 3HR GTT SPECIAL 1.5 HR SER 1 1/2HR GLUCOSE from 0929:[id number] 3HR GTT SPECIAL 1/2 HR SER 1/2 HR GLUCOSE from 0929:[id number] 3HR GTT SPECIAL 2.5 HR SER 2 1/2 HR GLUC from 0929:[id number]. 3HR GTT SPECIAL 1.5 HR SER 1 1/2HR GLUCOSE from 29: [id number] 3HR GTT SPECIAL 1/2 HR SER 1/2 HR GLUCOSE from 29:[id number] 3HR GTT SPECIAL 2.5 HR SER 2 1/2 HR GLUC from 0929:[id number]. 3HR GTT SPECIAL 1.5 HR SER 1 1/2HR GLUCOSE from 0929:[id number] 3HR GTT SPECIAL 1/2 HR SER 1/2 HR GLUCOSE from 29:[id number] 3HR GTT SPECIAL 2.5 HR SER 2 1/2 HR GLUC from 0929:[id number]. 3HR GTT SPECIAL 1.5 HR SER 1 1/2HR GLUCOSE from 29:[id number] 3HR GTT SPECIAL 1/2 HR SER 1/2 HR GLUCOSE from 0929:[id number] 3HR GTT SPECIAL 2.5 HR SER 2 1/2 HR GLUC from 29:[id number]. 3HR GTT SPECIAL 1.5 HR SER 1 1/2HR GLUCOSE from 29:[id number] 3HR GTT SPECIAL 1/2 HR SER 1/2 HR GLUCOSE from 29:[id number] 3HR GTT SPECIAL 2.5 HR SER 2 1/2 HR GLUC from 29:[id number]. 3HR GTT SPECIAL 1.5 HR SER 1 1/2HR GLUCOSE from 0929:[id number] 3HR GTT SPECIAL 1/2 HR SER 1/2 HR GLUCOSE from 0929: [id number] 3HR GTT SPECIAL 2.5 HR SER 2 1/2 HR GLUC from 0929:[id number]. 3HR GTT SPECIAL 1.5 HR SER 1 1/2HR GLUCOSE from 29:[id number] 3HR GTT SPECIAL 1/2 HR SER 1/2 HR GLUCOSE from 0929:[id number] 3HR GTT SPECIAL 2.5 HR SER 2 1/2 HR GLUC from 29:[id number] 64 REFERENCE RANGE: 20-50 MG/DL ABOVE FASTING 65 REFERENCE RANGE: 5-15 MG/DL ABOVE FASTING 66 ---- RUN DATE: 10/25/08 [facility] NMI LIVE PAGE 1 RUN TIME: 1312 Specimen Inquiry RUN USER: INTERFACE -- Name: KRYSTIAN FULTON Status: REG REF Re10/24/08 Age/Sex: 37/F Unit#: [id number] Location: [facility]. : 71 -- Specimen: [id number] SOUT Spec Date: 10/24/[address]: Sommer edmonds MD Spec Type: CYTOLOGY Received: 10/25/08-1002 Copies to: SOURCE ECTOCERVICAL/ENDOCERVICAL Thin Prep with Reflex HPV Test PATIENT INFORMATION ACTUAL COLLECTION DATE: 10/24/08 PATIENT HISTORY: No history given. ADEQUACY OF SPECIMEN Satisfactory for evaluation * Transformation zone component identified * DIAGNOSIS NEGATIVE FOR INTRAEPITHELIAL LESION OR MALIGNANCY * This Pap test was evaluated with the assistance of the ThinPrep Pap Test Imaging System. The Pap Smear is a screening test designed to aid in the detection of premalign ant and malignant conditions of the uterine cervix. It is not a diagnostic procedure a nd should not be used as the sole means of detecting cervical cancer. Both false- positiv e and false-negative reports do occur. Depending on your risk status, a Pap smear katherine uld be obtained and evaluated every one to three years. Initial evaluation performed by Star ANTONIO([facility]) 10/25/08 Final Interpretation electronically signed by: Star ANTONIO([facility]) 10/25/08 1311 -- -- DEPARTMENT OF PATHOLOGY, [address] [place] [address] [facility] Permit #[id number] Harvey Kelly M.D. Acquisitions Analyst Dir masters -- 67 SPECIMEN CONTAINS NORMAL URETHRAL OR PERINEAL NICOLAS AND DOES NOT SUGGEST URINARY TRACT INFECTION 68 CHOLESTEROL INTERPRETATION: Desirable: Less than 200 MG/DL Borderline-High Risk: 200-239 MG/DL High-Risk: 240 MG/DL and over 69 HDL INTERPRETATION: Undesirable: High Risk: Less than 40 MG/DL Desirable: Low Risk: Greater than 60 MG/DL 70 LDL INTERPRETATION: Low Risk Optimal Level: LDL Less than 100 MG/DL Near or Above Optimal: LDL 100-129 MG/DL Borderline High Risk: LDL 130-159 MG/DL High Risk: LDL 160-189 MG/DL Very High Risk: LDL Greater than 189 MG/DL 71 PLEASE NOTE NEW REFERENCE RANGES. 72 Test Performed by: [facility] Dpt of Lab Med and Pathology [address] [place] [address] Checker In: Don Can III, M.D. 73 Test Performed by: [facility] Med and Pathology [address] [place] [address] Checker In: Don Can III, M.D. 74 Anion gap measurement may be of limited value in the presence of any alkalosis, especially in a combined acid base disorder. . 75 Note change in reference range as of 10/19/07. The change was based on recommendations from the [place] [employer]. 76 Please note change in reference range effective 07 . 77 A metabolite of Naproxen, O-desmethylnaproxen, has been shown to interfere with the [place] method for measuring total bilirubin. Samples from patients who have taken Naproxen have shown spurious elevation in total bilirubin levels. 78 Because ethnic data is not always readily available, this report includes an eGFR for both -Americans and non- Americans. The National Kidney Disease Education Program (NKDEP) does not endorse the use of the MDRD equation for patients that are not between the ages of 18 and 70, are , have extremes of body size, muscle mass, or nutritional status, or are non- or non-. According to the National Kidney Foundation, irrespective of diagnosis, the stage of the disease is based on the level of kidney function: Stage Description GFR(mL/min/1.73 m(2)) 1 Kidney damage with normal or decreased GFR 90 2 Kidney damage with mild decrease in GFR 60-89 3 Moderate decrease in GFR 30-59 4 Severe decrease in GFR 15-29 5 Kidney failure <15 (or dialysis) 79 -- REFERENCE VALUE -- 25-HYDROXY D TOTAL (D2+D3) Optimum levels in the normal population are 25-80 Test Performed by: [facility] D[facility] of Lab Med and Pathology [address] [place] [address] Checker In: Don Can III, M.D. 80 FINAL: NO GROWTH DAY 2 81 Normal pharyngeal nicolas 82 ---- RUN DATE: 11/03/07 [facility] NMI LIVE PAGE 1 RUN TIME: 916 Specimen Inquiry RUN USER: INTERFACE -- Name: KRYSTIAN FULTON Status: REG REF Re10/27/07 Age/Sex: 36/F Unit#: [id number] Location: [facility] : 71 -- Specimen: [id number] SOUT Spec Date: 10/27/[address]: Charlie gutiérrez MD Spec Type: SURGICAL P Received: 10/31/07-5611 Copies to: Sommer dailey MD SPECIMEN EXCISION SKIN LESION LEFT UPPER BACK HISTORY CLINICAL INFORMATION: Irritating papule. GROSS DESCRIPTION . DIAGNOSIS Skin, left upper back, excision: Dermatofibroma (see comment). COMMENT The following immunohistochemical stains were performed by [facility] with the appropriate controls: Factor 13A: Positive in spindle cell proliferation. CD34: Positive in traversing small vessels only. The morphologic features and immunohistochemical staining pattern support the above rendered diagnosis. ADDENDUM Addendum #1 Entered: 11/03/07 The gross description was omitted in the original surgical pathology report as a clerical error. The gross description is as follows: Received in formalin labelled Krystianalek Fulton Skin Left Upper Back consists of an unoriented skin ellipse measuring 1.2 x 1.0 x 0.8 cm. Specimen is inked, serially sectioned and submitted entirely one cassette. -- DEPARTMENT OF PATHOLOGY, [address] [place] [address] [facility] Permit #[id number] Kareem Elizalde M.D. Director of Laboratories -- -- RUN DATE: 11/03/07 [facility] NMI LIVE PAGE 2 RUN TIME: 916 Specimen Inquiry RUN USER: INTERFACE -- Name: KRYSTIAN FULTON Status: REG REF Re10/27/07 Age/Sex: 36/F Unit#: [id number] Location: [facility] : 71 -- -- CONTINUED -- ADDENDUM (Continued) Addendum Review (signature on file) KAREEM ELIZALDE MD 11/03/07 -- Signed Electronically by: KAREEM ELIZALDE MD 11/02/07 1701 -- -- DEPARTMENT OF PATHOLOGY, [address] [place] [address] [facility] Permit #[id number] Kareem Elizalde M.D. Director of [employer] -- 83 FASTING 84 CHOLESTEROL INTERPRETATION: Desirable: Less than 200 MG/DL Borderline-High Risk: 200-239 MG/DL High-Risk: 240 MG/DL and over 85 HDL INTERPRETATION: Undesirable: High Risk: Less than 40 MG/DL Desirable: Low Risk: Greater than 60 MG/DL 86 LDL INTERPRETATION: Low Risk Optimal Level: LDL Less than 100 MG/DL Near or Above Optimal: LDL 100-129 MG/DL Borderline High Risk: LDL 130-159 MG/DL High Risk: LDL 160-189 MG/DL Very High Risk: LDL Greater than 189 MG/DL 87 [employer] DEPARTMENT OF PATHOLOGY or Extension 8212 SHOE DRESSER CYTOLOGY REPORT PATIENT: KRYSTIAN FULTON : 1970 AGE: 36 Y SEX: F ACCT: [id number] PROCEDURE DATE: 04/11/2007 DATE RECEIVED: 04/12/2007 REQUESTING PHYSICIAN: SOMMER AQUINO MD LOCATION: [facility] Case No. [id number] PATIENT DATA: [id number] SPECIMEN SUBMITTED: * * (HPVII) THIN PREP W/HPV (LSIL/ASC/NAT) * * ENDOCERVICAL RELEVANT HISTORY: Post - : Y Weeks after delivery: 9 SPECIMEN ADEQUACY SATISFACTORY FOR EVALUATION, ENDOCERVICAL TRANSFORMATION ZONE COMPONENT PRESENT GENERAL CATEGORIZATION NEGATIVE FOR INTRAEPITHELIAL LESIONS OR MALIGNANCY ADDITIONAL COPIES SENT TO: Screened/Rescreened by: Electronically Signed by: FELIZ CURRIE(ASCP) Signed Date 04/13/2007 14:21 Thin Prep Pap tests are examined with an FDA-approved location-guidance system (18011). Performed @ [facility] [address] [place] [id number] 38 Normal pharyngeal nicolas 89 mL/min/1.73m2 . Normal Function or Mild Renal Disease, if clinically at risk: >or=60 Moderately decreased: 30 - 59 Severely decreased: 15 - 29 Renal Failure: <15 . Please note that the MDRD equation requires an additional adjustment for -Americans (multiply the GFR result by 1.210). . Glomerular Filtration Rate (GFR) is estimated based on the MDRD equation, which assumes a steady state for creatinine (Leilani Int Med 139/2 137-149, 2003), as recommended by the National Kidney Disease Education Program in conjunction with the National Institutes of Health and the National Kidney Foundation. . Clinical conditions in which it may be necessary to measure GFR by using clearance methods include extremes of age and body size, severe malnutrition or obesity, diseases of skeletal muscle, paraplegia or quadriplegia, vegetarian diet, rapidly changing kidney function, and calculation of the dose of potentially toxic drugs that are excreted by the kidneys. 90 ---- RUN DATE: 10/25/06 [facility] NMI LIVE PAGE 1 RUN TIME: 1457 Specimen Inquiry RUN USER: INTERFACE [id number] KRYSTIAN FULTON 35/F <REG REF 10/21> ([id number]) [facility] Kevyn d -- Specimen: [id number] SOUT Spec Date: 10/21/[address] [facility] [address]: Charlie gutiérrez MD Spec Type: SURGICAL P Received: 10/24/06 Copies to: Sommer dailey MD SPECIMEN 1) EXCISION SKIN LESION LEFT ALAR CREASE 2) EXCISION SKIN LESION LEFT CHEEK 3) EXCISION SKIN LESION LEFT NECK HISTORY CLINICAL INFORMATION: Irritating papules GROSS DESCRIPTION 1) The specimen is received in formalin labelled Krystian Fulton, Excision Skin Lesion Left Alar Crease, and consists of an unoriented skin ellipse measuring 0.7 x 0.5 x 0.3 cm. Submitted entirely, one cassette. 2) The specimen is received in formalin labelled Krystianalek Nixong, Excision Skin Lesion Left Cheek, and consists of an unoriented skin ellipse measuring 0.6 x 0.3 x 0.3 cm. with a central raised, pigmented nodule up to 0.3 cm. The specimen is inked, bisected, and submitted entirely in one cassette. 3) The specimen is received in formalin labelled Krystian Nixong, Excision Skin Lesion Left Neck, and consists of an unoriented, irregular skin ellipse measuring 0.6 x 0.7 x 0.3 cm. The specimen is inked, serially sectioned, and submitted entirely in one cassette. DIAGNOSIS 1) Skin, left alar crease, excision - Benign, predominantly intradermal melanocytic nevus. 2) Skin, left cheek, excision - Benign, predominantly intradermal melanocytic nevus. 3) Skin, left neck, excision - Benign, predominantly intradermal melanocytic nevus. Signed Electronically by: KAREEM ELIZALDE MD 10/25/06 0476 -- -- DEPARTMENT OF PATHOLOGY, [address] [place] [address] [facility] Permit #[id number] Kareem Elizalde M.D. Director of Laboratories Markos Thompson II, M.D . Pathologist -- 91 Anion gap measurement may be of limited value in the presence of any alkalosis, especially in a combined acid base disorder. . 92 Anion gap measurement may be of limited value in the presence of any alkalosis, especially in a combined acid base disorder. . 93 Anion gap measurement may be of limited value in the presence of any alkalosis, especially in a combined acid base disorder. . 94 Classification: High . 95 CALCULATED LDL APPROXIMATES THE VALUE OF A DIRECT LDL MEASUREMENT. Classification: High . 96 Source: CERVICAL POSITIVE for low risk HPV types 6/11/42/43/44 97 Source: CERVICAL Negative for high/intermediate risk HPV types 16/18/31/33/35/39/45/51/52/56/58/59/68 98 Source: VAGINAL Normal vaginal nicolas. 99 Source: VAGINAL RARE EPI, RARE WBC, FEW GRAM NEG RODS Procedures Date Code Description Status 03/19/2014 66909 Removal Of IUD Completed 10/23/2013 21596 IUD Insertion Completed 08/22/2013 18224 Therapeutic,Prophylactic,Or Diagnostic Inj,SC/Im Specify Completed Drug 2002 98754 Multiple Allergy Shot Administrat Completed 2002 40802 Multiple Allergy Shot Administrat Completed 11/20/2002 94219 Multiple Allergy Shot Administrat Completed 11/20/2002 80489 Multiple Allergy Shot Administrat Completed 11/13/2002 05913 Multiple Allergy Shot Administrat Completed 11/13/2002 96249 Multiple Allergy Shot Administrat Completed 11/08/2002 12449 Multiple Allergy Shot Administrat Completed 11/03/2002 07856 Multiple Allergy Shot Administrat Completed Encounters Type Date Location Provider Dx Diagnosis Office Visit 12/07/2016 Main Office Sommer Aquino, Z00.00 Encntr for general 12:00p M.D. adult medical exam w/o abnormal findings R73.01 Impaired fasting glucose E55.9 Vitamin D deficiency, unspecified E78.00 Pure hypercholesterolemia, unspecified Z12.31 Encntr screen mammogram for malignant neoplasm of breast R42 Dizziness and giddiness N95.1 Menopausal and female climacteric states R10.30 Lower abdominal pain, unspecified M25.561 Pain in right knee E66.9 Obesity, unspecified Z23 Encounter for immunization Office Visit 01/07/2016 3:45p Main Office Lenora Drummond, F32.9 Major depressive COPY COORDINATOR-C disorder, single episode, unspecified M25.512 Pain in left shoulder Office Visit 12/05/2015 3:30p Main Office Lenora Drummond F32.9 Major depressive COPY COORDINATOR-C disorder, single episode, unspecified Office Visit 09/30/2015 9:00a Main Office Jitendra Dumont L23.7 Allergic contact III, COPY COORDINATOR-C dermatitis due to plants, except food Office Visit 05/27/2015 4:00p Main Office Sommer Jordan F43.21 Adjustment AgustingenHarvey disorder with depressed mood Office Visit 04/15/2015 3:30p Main Office Sommer Jordan R63.5 Abnormal weight Harvey Aquino gain E55.9 Vitamin D deficiency, unspecified F43.21 Adjustment disorder with depressed mood Office Visit 07/08/2014 11:15a Main Office Sommer Aquino, 719.45 Pain Joint M.D. Pelvic Region & Thigh 724.5 Backache Unspec 782.0 Skin Sensation Disturbance 300.00 Anxiety State Unspec 268.9 Vitamin D Deficiency Unspec 912.4 Injury Superficial Insect Bite Shlder & Up Arm Nonven No Inf V18.19 Family HX Of Other Endocrine And Metabolic Disease Office Visit 2013 3:30p Main Office Lenora Drummond V25.42 Contraceptive COPY COORDINATOR-C Intrauterine Device Surveillance 616.10 Vaginitis & Vulvovaginitis Unspec Office Visit 08/22/2013 3:15p Main Office Sommer Jordan V25.09 Contraceptive Harvey Aquino Management Other 465.9 URI Upper Respiratory Infections Acute Unspec Sites Office Visit 04/02/2013 10:15a Main Office Sommer Jordan V72.31 Routine Fws Faculty Assistant Blegen, M.DJair Examination 620.2 Ovarian Cyst Other & Unspec 240.9 Goiter Unspec 272.0 Hypercholesterolemia Pure 268.9 Vitamin D Deficiency Unspec 790.21 Impaired Fasting Glucose V76.51 Special Screening For Malignant Neoplasms Colon Office Visit 07/11/2012 4:00p Main Office Sommer Aquino, 240.9 Goiter Unspec M.D. 620.2 Ovarian Cyst Other & Unspec 790.21 Impaired Fasting Glucose Office Visit 04/05/2012 9:30a Main Office Sommer Jordan V72.31 Routine Fws Faculty Assistant Miles, M.DJair Examination 311 Depressive Disorder Not Elsewhere Spec 790.21 Impaired Fasting Glucose 719.47 Pain Joint Ankle & Foot 272.0 Hypercholesterolemia Pure 626.2 Menstruation Excessive Or Frequent 078.12 Plantar Wart 240.9 Goiter Unspec V76.51 Special Screening For Malignant Neoplasms Colon Office Visit 01/28/2012 9:45a Main Office Lenora Drummond, 461.8 Sinusitis Acute COPY COORDINATOR-C Other Office Visit 04/05/2011 12:00p Main Office Sommer Jordan 461.8 Sinusitis Acute Harvey Aquino Other Office Visit 01/18/2011 11:45a Main Office Sommer Jordan 466.0 Bronchitis Acute Miles MPapo 311 Depressive Disorder Not Elsewhere Spec Office Visit 08/20/2010 12:15p Main Office Connie Bell, 995.3 Allergy Unspec Ebony.Lindsey, R.D. Office Visit 03/30/2010 9:30a Main Office Sommer Jordan V72.31 Routine Fws Faculty Assistant Harvey Aquino Examination 311 Depressive Disorder Not Elsewhere Spec 790.6 Abnormal Blood Chemistry Other 375.15 Dry Eye Syndrome Tear Film Insufficiency Unspec 626.2 Menstruation Excessive Or Frequent Office Visit 03/02/2010 9:15a Main Office Argenis Canada, 682.0 Cellulitis & FIELD GEOLOGIST Abscess Face Office Visit 12/23/2009 2:30p Main Office Argenis [place], 466.0 Bronchitis Acute FIELD GEOLOGIST Office Visit 10/03/2009 8:45a Main Office Bella Churchill, 477.9 Rhinitis Allergic COPY COORDINATOR-C Cause Unspec Office Visit 02/24/2009 8:30a Main Office Bella Churchill, 461.8 Sinusitis Acute COPY COORDINATOR-C Other Office Visit 10/24/2008 9:30a Main Office Sommer Jordan V72.31 Routine Fws Faculty Assistant Harvey Aquino Examination 272.0 Hypercholesterolemia Pure 311 Depressive Disorder Not Elsewhere Spec Office Visit 05/27/2008 10:45a Main Office Connie Bell, 682.0 Cellulitis & Abscess Harvey, R.D. Face Office Visit 05/11/2008 11:00a Main Office Brian Kirk M.D. 034.0 Streptococcal Sore Throat Office Visit 04/27/2008 10:30a Main Office Bella Marie 034.0 Streptococcal Sore Storm, COPY COORDINATOR-C Throat Office Visit 03/04/2008 11:45a Main Office Bella Marie 381.81 Eustachian Tube Storm, COPY COORDINATOR-C Dysfunction Office Visit 07/20/2007 12:30p Main Office Sommer Jordan 053.9 Herpes Zoster W/O Harvey Aquino Complication 309.0 Adjustment Disorder With Depression Office Visit 06/06/2007 4:00p Main Office Sommer Jordan 309.0 Adjustment Disorder Harvey Aquino With Depression 272.0 Hypercholesterolemia Pure Office Visit 04/11/2007 2:30p Main Office Sommer Jordan V72.31 Routine Fws Faculty Assistant Harvey Aquino Examination 272.0 Hypercholesterolemia Pure 790.1 Sedimentation Rate Elevated 309.0 Adjustment Disorder With Depression V06.8 Combination Diseases Other Vaccination & Inoculation Office Visit 01/23/2007 3:30p Main Office Bella Churchill, 309.0 Adjustment Disorder COPY COORDINATOR-C With Depression 245.9 Thyroiditis Unspec Office Visit 04/10/2003 9:00a Main Office Lenora Caldwell, 787.91 Diarrhea M.D. Office Visit 12/21/2002 3:15p Main Office Lenora Caldwell, 461.0 Sinusitis Acute M.D. Maxillary Office Visit 10/01/2002 9:00a Main Office Sommer Jordan V72.3 Examination Harvey Aquino Gynecological 795.0 Papanicolaou Smear Of Cervix Nonspecific Abnormal 709.9 Skin & Subcutaneous Tissue Disorders Unspec 785.1 Palpitations Office Visit 08/28/2002 3:30p Main Office Sommer Jordan 709.9 Skin & Subcutaneous Harvey Aquino Tissue Disorders Unspec Office Visit 06/13/2002 9:15a Main Office Jo Christensen, 782.1 Rash & Other Nonspec FIELD GEOLOGIST Skin Eruption 054.79 Herpes Simplex Other Office Visit 12/05/2001 11:15a Main Office Sommer Aquino M.D. 684 Impetigo 782.1 Rash & Other Nonspec Skin Eruption Office Visit 12/01/2001 12:00p Main Office Jo Christensen, 684 Impetigo FIELD GEOLOGIST Office Visit 11/23/2001 4:00p Main Office Sommer Jordan 68Hanane Impetisteven Aquino M.D. Office Visit 09/19/2001 9:45a Main Office Sommer Jordan 795.0 Papanicolaou Smear Harvey Aquino Of Cervix Nonspecific Abnormal Office Visit 06/29/2001 4:15p Main Office Sommer Jordan 795.0 Papanicolaou Smear Harvey Aquino Of Cervix Nonspecific Abnormal Plan of Treatment 05/17/2018 - Sommer Aquino M.D.Z00.00 Encounter for general adult medical examination without abnoComments:HEALTH MAINTENANCE REMINDERS DISCUSSED. ENCOURAGED CONTINUE WITH HEALTHY EATING, REGULAR PHYSICAL ACTIVITY/ EXERCISE, CALCIUM INTAKE WITH DIET. DISCUSSED MONTHLY BSE, MAMMOGRAM RECOMMENDED EVERY 1- 3 YEARS BETWEEN AGES 40-50.Follow up:. -- HEALTH CARE PROXYRecommendations:-- REMINDER TO FILL OUT YOUR HEALTH CARE PROXY -- YOU WILL BE DUE FOR YOUR PAP SMEAR NEXT YEAR -- YOU WILL BE DUE FOR YOUR MAMMOGRAM IN JULY OR BY NEXT JULY IF WANT TO WAIT 2 YEARS- LET ME KNOW WHEN YOU WANT THE ORDER AND I WILL SENDF33.0 Major depressive disorder, recurrent, mildComments:PT FEELS SHE IS DOING SOME BETTER BUT HAS A LOT OF STRESSORS SO DIFFICULT FOR HER TO TELL. OVERALL TOLERATING BUPROPION, DOES NOT WANT TO TAKE ANY MED THAT CAN CAUSE WEIGHT GAIN. PERHAPS SOME MILD HEADACHES FROM BUPROPION. SOMETIMES FORGETS SECOND DOSE. DISCUSSED CAN TRY BUPROPION XL 300 MG PER DAY INSTEAD OF THE SR 150 MG BID TO SEE IF TOLERATES BETTER AND THEN ONLY HAS TO TAKE 1 PER DAY, NOTIFY IF PROBLEMS WITH MED OR CONCERNS. OTHERWISE F/U 1-2 MONTHS.Follow up:-- F /U JUNE- DEPRESSION- 30 MINRecommendations:-- TRY CHANGING TO THE BUPRPION XL 300 MG PER DAY- TAKE 1 PER DAY INSTEAD OF THE SR 150 MG TWICE PERDAY -- LET ME KNOW HOW YOU DO ON THE MEDICINE OR ANY CONCERNS -- FOLLOW-UP IN .01 Impaired fasting glucoseFollow up:.Recommendations:-- KEEP UP THE GOOD WORK WITH PHYSICAL ACTIVITY AND HEALTHY EATING, WORK IN AEROBIC EXERCISE LIKE BRISK WALKS/ HIKES WHEN YOUR ANKLE IS BETTER AND YOU FIND SOME TIMEE55.9 Vitamin D deficiency, unspecifiedFollow up:.Recommendations:-- WE ARE RECHECKING YOUR VITAMIN D BJAPBC78.9 Anemia, unspecifiedFollow up:.Recommendations:-- WE ARE RECHECKING YOUR VITAMIN D LEVEL AND VITAMIN B12 LEVEL AND IRON STUDIES, WELL YOUR BLOOD [id number] Encounter for screening for lipoid disordersFollow up :.Recommendations:-- WE CHECKED YOUR CHOLESTEROL PROFILE
[2018-06-19] MEDS ORDERED: Ibuprofen TAB* 600 MG PO ONE (08:31)
[2018-06-19 08:47] VITALS: BP 117/58
--- NOTE | 2018-06-19 09:15 | ED ---
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 Patient denies any other symptoms. She is endorsing pain most notably to the lateral portion of the ankle and to the superior portion of the foot. She states she has never injured the ankle before. She denies any ecchymosis, swelling or erythema. She denies hitting her head or LOC. - History of Current Complaint Chief Complaint: EDExtremityLower Stated Complaint: FELL DOWN STAIRS PER PT. Time Seen by Provider: 06/19/18 07:33 Hx Obtained From: Patient Hx Last Menstrual Period: 04/11/17 Mechanism Of Injury: Twisted Onset of Pain: Hours Onset/Duration: Hours Severity Initially: Mild Severity Currently: Mild Pain Intensity: 3 Pain Scale Used: 0-10 Numeric Location: Is Discrete @ - left ankle injury Aggravating Factor(s): Standing, Ambulation Alleviating Factor(s): Rest Able to Bear Weight: No - Risk Factors Gout Risk Factors: Negative DVT Risk Factors: Negative Septic Arthritis Risk Factor: Negative - Allergies/Home Medications Allergies/Adverse Reactions: Allergies Allergy/AdvReac Type Severity Reaction Status Date / Time codeine Allergy vomit Verified 06/19/18 07:27 shellfish derived Allergy Unknown Verified 06/19/18 07:53 Reaction Details Home Medications: Home Medications NK [No Home Medications Reported] 06/19/18 [History Confirmed 06/19/18] PMH/Surg Hx/FS Hx/Imm Hx Previously Healthy: Yes Endocrine/Hematology History: Reports: Hx Diabetes - pre diabetes Denies: Hx Thyroid Disease Cardiovascular History: Denies: Hx Hypertension, Hx Pacemaker/ICD Respiratory History: Denies: Hx Asthma, Hx Chronic Obstructive Pulmonary Disease (COPD) GI History: Denies: Hx Ulcer History: Denies: Hx Renal Disease Sensory History: Denies: Hx Hearing Aid Psychiatric History: Denies: Hx Panic Disorder - Surgical History Surgery Procedure, Year, and Place: LASIK EYE SURGERY - Immunization History Hx Pertussis Vaccination: No Immunizations Up to Date: Yes Infectious Disease History: No Infectious Disease History: Denies: Hx Human Immunodeficiency Virus (HIV), Traveled Outside the [place] in Last 30 Days - Family History Known Family History: Positive: Diabetes - Social History Occupation: Employed Full-time Lives: With Family Alcohol Use: Rare Hx Substance Use: No Substance Use Type: Reports: None Hx Tobacco Use: No Smoking Status (MU): Never Smoked Tobacco Review of Systems Constitutional: Negative Negative: Fever, Chills, Fatigue, Skin Diaphoresis Negative: Palpitations, Chest Pain Negative: Shortness Of Breath Genitourinary: Negative Positive: no symptoms reported, see HPI Positive: Arthralgia - left ankle injury. Negative: Myalgia Negative: Rash, Bruising Neurological: Negative All Other Systems Reviewed And Are Negative: Yes Physical Exam Triage Information Reviewed: Yes Vital Signs On Initial Exam: Initial Vitals Temp Pulse Resp BP Pulse Ox 98.2 F 94 15 112/76 98 06/19/18 07:27 06/19/18 07:27 06/19/18 07:27 06/19/18 07:27 06/19/18 07:27 Vital Signs Reviewed: Yes Appearance: Positive: Well-Appearing, Well-Nourished Skin: Positive: Warm, Skin Color Reflects Adequate Perfusion Head/Face: Positive: Normal Head/Face Inspection Eyes: Positive: EOMI, Conjunctiva Clear Neck: Positive: Supple, No Lymphadenopathy Respiratory/Lung Sounds: Positive: Clear to Auscultation, Breath Sounds Present Cardiovascular: Positive: RRR, Pulses are Symmetrical in both Upper and Lower Extremities. Negative: Leg Edema Left, Leg Edema Right Musculoskeletal: Positive: Normal, Strength/ROM Intact, Pain @ - left ankle pain Neurological: Positive: Sensory/Motor Intact, Alert, Oriented to Person Place, Time Psychiatric: Positive: Affect/Mood Appropriate AVPU Assessment: Alert Diagnostics - Vital Signs Vital Signs Temp Pulse Resp BP Pulse Ox 06/19/18 08:47 97.7 F 72 18 117/58 98 06/19/18 07:27 98.2 F 94 15 112/76 98 - Laboratory Lab Statement: Any lab studies that have been ordered have been reviewed, and results considered in the medical decision making process. Lower Extremity Course/Dx - Course Course Of Treatment: During this course treatment: The patient is evaluated for left ankle injury. X-ray obtained which shows no acute findings of dislocation or fracture. There is some slight swelling to the lateral portion of the ankle without ecchymosis or erythema. Patient is able to plantarflex and dorsiflex, however with pain. She is given ibuprofen 600mg while in the ED. Gel splint and crutches are given. Bharat wrapped the ankle. She will be diagnosed with ankle sprain and will follow-up with orthopedics if symptoms persist. - Diagnoses Differential Diagnosis/HQI/PQRI: Positive: Sprain, Strain Provider Diagnoses: Ankle sprain Discharge - Sign-Out/Discharge Documenting (check all that apply): Patient Departure Patient Received Moderate/Deep Sedation with Procedure: No - Discharge Plan Condition: Stable Disposition: HOME Patient Education Materials: Ankle Sprain (ED) Forms: *Work Release Referrals: Tristen Kee MD [Medical Doctor] - Sommer Aquino MD [Primary Care Provider] - Additional Instructions: Please keep the area Bharat bandage for at least 5 days You may use the gel splint for comfort Ibuprofen 600 mg 3 times daily times at least 3 days Elevate when possible Ice to the area If symptoms persist or fail to improve, please see an orthopedic physician I have given your referral Use crutches as needed - Billing Disposition and Condition Condition: STABLE Disposition: Home
== END 2018-06-19 08:47 | disposition home or self-care (01) ==
LOC: ED 07:26
DX: S93.402A Sprain of unspecified ligament of left ankle, initial encounter (principal); Y92.9 Unspecified place or not applicable; W10.9XXA Fall (on) (from) unspecified stairs and steps, initial encounter; R73.03 Prediabetes
CPT/HCPCS: 99282; A9270-GY